=== PATIENT | male | born 1945 | race American Indian/Alaskan Native ===

== ENCOUNTER 2018-01-20 13:29 | Inpatient (IN) | payer OTHER ==
[2018-01-20] VITALS (8 sets, daily range): BP systolic 92–146; BP diastolic 60–97
[~2018-01-20] VITALS: Ht 172.7 cm; Wt 92.0 kg
[~2018-01-20 13:29] MED LIST: ADULT LOW DOSE81 MG PO; ALLOPURINOL300 M1 PO; APAP/HYDROCODON1 T11 PO; ATORVASTATIN CA40 M1 PO; CARVEDILOL25 M1 PO; CLOPIDOGREL75 M1 PO; D25 PO; FENOFIBRATE160 M1 PO; HUMULIN N100 U/1 ML SQ; METFORMIN HCL1000 MG PO; NEU300 PO; SPIRONOLACTONE25 MG PO
[2018-01-20 14:49] LABS: BASOPHIL % 0.6 % (0-2); PLATELET COUNT 190 x10^3mcL (130-400); RED CELL DISTRIBUTION WIDTH 14.3 % (11.5-14.5)
[2018-01-20 14:52] LABS: CALCIUM 8.9 mg/dL (8.5-10.1); CARBON DIOXIDE 17.6 mmol/L (21-32); CHLORIDE SERUM 106 mmol/L (98-107); CREATININE SERUM 2.1 mg/dL (0.7-1.3); GLUCOSE SERUM 209 mg/dL (74-106); POTASSIUM SERUM 4.9 mmol/L (3.5-5.1); SODIUM SERUM 139 mmol/L (136-145)
[2018-01-20 14:56] LABS: ALBUMIN 3.7 g/dL (3.4-5.0); ALKALINE PHOSPHATASE 29 U/L (46-116); ALT/SGPT 41 U/L (16-63); AST/SGOT 51 U/L (15-37); BILIRUBIN TOTAL 0.4 mg/dL (0.20-1.00); MAGNESIUM 1.5 mg/dL (1.8-2.4); PHOSPHOROUS 4.9 mg/dL (2.5-4.9); TOTAL PROTEIN, SERUM 7.5 g/dL (6.4-8.2)
[2018-01-20 15:04] LABS: microscopic required? YES; urine erythrocyte NEGATIVE (NEGATIVE)
[2018-01-20 16:52] LABS: CHOLESTEROL/HDL RATIO 3.1
[2018-01-20 16:53] LABS: FREE T4 1.07 ng/dL (0.76-1.46); FREE THYROXINE INDEX 2.2 ug/dL (1.4-4.5); T4(THYROXINE) 6.6 ug/dL (4.7-13.3)
[2018-01-20] MEDS ORDERED: CLOPIDOGREL75 M1 PO (17:03)
[2018-01-20] MEDS ORDERED: FENOFIBRATE160 M1 PO (17:04)
[2018-01-20] MEDS ORDERED: ATORVASTATIN CA40 M1 PO ×2 (17:05)
[2018-01-20] MEDS ORDERED: CARVEDILOL25 M1 PO (17:06)
[2018-01-20] MEDS ORDERED: ALDACTONE25 MG PO (17:06)
[2018-01-20] MEDS ORDERED: GOOD SENSE ASPI81 M3 PO (17:07)
[2018-01-20] MEDS ORDERED: METFORMIN HCL1000 MG PO (17:08)
[2018-01-20] MEDS ORDERED: NEU300 PO (17:08)
[2018-01-20] MEDS ORDERED: HUMULIN N100 U/1 ML SC (17:09)
[2018-01-20] MEDS ORDERED: ALLOPURINOL100 MG PO (17:10)
[2018-01-20] MEDS ORDERED: DIGOXIN0.25 M1 PO (17:11)
[2018-01-20 17:15] LABS: T3 TOTAL 0.86 ng/mL
[2018-01-21] VITALS (19 sets, daily range): BP systolic 92–160; BP diastolic 45–94
[2018-01-21 04:55] LABS: BASOPHIL % 0.2 % (0-2); PLATELET COUNT 190 x10^3mcL (130-400); RED CELL DISTRIBUTION WIDTH 13.6 % (11.5-14.5)
[2018-01-21 05:05] LABS: CALCIUM 8.5 mg/dL (8.5-10.1); CARBON DIOXIDE 24.2 mmol/L (21-32); CHLORIDE SERUM 108 mmol/L (98-107); CREATININE SERUM 1.6 mg/dL (0.7-1.3); GLUCOSE SERUM 169 mg/dL (74-106); MAGNESIUM 1.8 mg/dL (1.8-2.4); PHOSPHOROUS 3.7 mg/dL (2.5-4.9); SODIUM SERUM 139 mmol/L (136-145)
[2018-01-21 05:12] LABS: POTASSIUM SERUM 5.9 mmol/L (3.5-5.1)
[2018-01-21 05:22] LABS: AMPHETAMINE QUAL UR NONE DETECTED (NEG <=1000)
[2018-01-21 12:08] LABS: ALBUMIN 3.4 g/dL (3.4-5.0); ALKALINE PHOSPHATASE 30 U/L (46-116); ALT/SGPT 37 U/L (16-63); AST/SGOT 44 U/L (15-37); BILIRUBIN TOTAL 0.8 mg/dL (0.20-1.00); CALCIUM 8.4 mg/dL (8.5-10.1); CHLORIDE SERUM 108 mmol/L (98-107); CREATININE SERUM 1.5 mg/dL (0.7-1.3); GLUCOSE SERUM 211 mg/dL (74-106); MAGNESIUM 1.4 mg/dL (1.8-2.4); PHOSPHOROUS 3.8 mg/dL (2.5-4.9); POTASSIUM SERUM 4.8 mmol/L (3.5-5.1); SODIUM SERUM 138 mmol/L (136-145); TOTAL PROTEIN, SERUM 7.3 g/dL (6.4-8.2)
[2018-01-21 17:32] LABS: ALKALINE PHOSPHATASE 28 U/L (46-116); ALT/SGPT 21 U/L (16-63); AST/SGOT 43 U/L (15-37); BILIRUBIN TOTAL 1.33 mg/dL (0.20-1.00); CALCIUM 8.1 mg/dL (8.5-10.1); CHLORIDE SERUM 106 mmol/L (98-107); CREATININE SERUM 1.4 mg/dL (0.7-1.3); GLUCOSE SERUM 186 mg/dL (74-106); MAGNESIUM 1.5 mg/dL (1.8-2.4); PHOSPHOROUS 4.5 mg/dL (2.5-4.9); POTASSIUM SERUM 4.1 mmol/L (3.5-5.1); SODIUM SERUM 141 mmol/L (136-145); TOTAL PROTEIN, SERUM 7.1 g/dL (6.4-8.2)
[2018-01-21 17:34] LABS: ALBUMIN 3.2 g/dL (3.4-5.0)
[2018-01-21 17:36] LABS: CARBON DIOXIDE 20.7 mmol/L (21-32)
[2018-01-22] VITALS (17 sets, daily range): BP systolic 85–137; BP diastolic 43–77
[2018-01-22 00:04] LABS: ALKALINE PHOSPHATASE 26 U/L (46-116); ALT/SGPT 32 U/L (16-63); AST/SGOT 35 U/L (15-37); BILIRUBIN TOTAL 0.8 mg/dL (0.20-1.00); CALCIUM 8.1 mg/dL (8.5-10.1); CHLORIDE SERUM 107 mmol/L (98-107); CREATININE SERUM 1.3 mg/dL (0.7-1.3); GLUCOSE SERUM 187 mg/dL (74-106); SODIUM SERUM 136 mmol/L (136-145); TOTAL PROTEIN, SERUM 6.5 g/dL (6.4-8.2)
[2018-01-22 00:15] LABS: MAGNESIUM 2.1 mg/dL (1.8-2.4); PHOSPHOROUS 4.3 mg/dL (2.5-4.9)
[2018-01-22 05:11] LABS: BASOPHIL % 0 % (0-2); PLATELET COUNT 155 x10^3mcL (130-400); RED CELL DISTRIBUTION WIDTH 14.2 % (11.5-14.5)
[2018-01-22 05:28] LABS: ALKALINE PHOSPHATASE 26 U/L (46-116); ALT/SGPT 24 U/L (16-63); AST/SGOT 34 U/L (15-37); BILIRUBIN TOTAL 0.8 mg/dL (0.20-1.00); CALCIUM 8.4 mg/dL (8.5-10.1); CARBON DIOXIDE 18.4 mmol/L (21-32); CHLORIDE SERUM 106 mmol/L (98-107); CREATININE SERUM 1.4 mg/dL (0.7-1.3); GLUCOSE SERUM 176 mg/dL (74-106); POTASSIUM SERUM 3.9 mmol/L (3.5-5.1); SODIUM SERUM 136 mmol/L (136-145); TOTAL PROTEIN, SERUM 6.7 g/dL (6.4-8.2)
[2018-01-22 05:35] LABS: MAGNESIUM 1.9 mg/dL (1.8-2.4); PHOSPHOROUS 4.8 mg/dL (2.5-4.9)
[2018-01-22 11:59] LABS: ALKALINE PHOSPHATASE 28 U/L (46-116); ALT/SGPT 31 U/L (16-63); AST/SGOT 37 U/L (15-37); BILIRUBIN TOTAL 1.27 mg/dL (0.20-1.00); CALCIUM 8.4 mg/dL (8.5-10.1); CARBON DIOXIDE 22.8 mmol/L (21-32); CHLORIDE SERUM 106 mmol/L (98-107); CREATININE SERUM 1.7 mg/dL (0.7-1.3); GLUCOSE SERUM 191 mg/dL (74-106); MAGNESIUM 1.8 mg/dL (1.8-2.4); POTASSIUM SERUM 4.3 mmol/L (3.5-5.1); SODIUM SERUM 139 mmol/L (136-145); TOTAL PROTEIN, SERUM 6.9 g/dL (6.4-8.2)
[2018-01-22 12:04] LABS: ALBUMIN 3.1 g/dL (3.4-5.0)
[2018-01-23] VITALS (18 sets, daily range): BP systolic 104–122; BP diastolic 58–74
[2018-01-23 03:28] LABS: CALCIUM 8.4 mg/dL (8.5-10.1); CARBON DIOXIDE 24.4 mmol/L (21-32); CHLORIDE SERUM 107 mmol/L (98-107); CREATININE SERUM 1.7 mg/dL (0.7-1.3); GLUCOSE SERUM 171 mg/dL (74-106); MAGNESIUM 1.8 mg/dL (1.8-2.4); SODIUM SERUM 140 mmol/L (136-145)
[2018-01-23 03:35] LABS: BASOPHIL % 0.1 % (0-2); PLATELET COUNT 153 x10^3mcL (130-400); RED CELL DISTRIBUTION WIDTH 14.1 % (11.5-14.5)
[2018-01-24] VITALS (11 sets, daily range): BP systolic 101–117; BP diastolic 58–74; Ht 172.7 cm; Wt 92.0 kg
[2018-01-24 04:34] LABS: BASOPHIL % 0.4 % (0-2); PLATELET COUNT 144 x10^3mcL (130-400); RED CELL DISTRIBUTION WIDTH 14.1 % (11.5-14.5)
[2018-01-24 05:16] LABS: ALKALINE PHOSPHATASE 32 U/L (46-116); ALT/SGPT 25 U/L (16-63); AST/SGOT 46 U/L (15-37); BILIRUBIN TOTAL 0.94 mg/dL (0.20-1.00); CALCIUM 8.6 mg/dL (8.5-10.1); CHLORIDE SERUM 106 mmol/L (98-107); CREATININE SERUM 1.8 mg/dL (0.7-1.3); GLUCOSE SERUM 200 mg/dL (74-106); MAGNESIUM 1.8 mg/dL (1.8-2.4); PHOSPHOROUS 2.7 mg/dL (2.5-4.9); SODIUM SERUM 140 mmol/L (136-145); TOTAL PROTEIN, SERUM 6.8 g/dL (6.4-8.2)
[2018-01-24 05:17] LABS: ALBUMIN 2.8 g/dL (3.4-5.0)
[2018-01-25] MEDS ORDERED: MOR4I IV (01:46)
[2018-01-25] MEDS ORDERED: NITOUD TOP (01:46)
[2018-01-25] MEDS ORDERED: COR200 PO (01:46)
[2018-01-25] MEDS ORDERED: HUMULIN R100 U/1 M1 SC (01:47)
[2018-01-25] MEDS ORDERED: L20 PO (01:47)
[2018-01-25] MEDS ORDERED: ZOS3PM IV (01:48)
[2018-01-25] MEDS ORDERED: HEP100I IV (01:51)
[2018-01-25] MEDS ORDERED: HEP5I IV (01:51)
[2018-01-25] MEDS ORDERED: DEXPF IV (01:52)
[2018-01-25 01:57] VITALS: BP 109/60
== END 2018-01-25 02:30 | disposition short-term general hospital (02) | DRG 208 ==
LOC: ED 13:29 → EDBD 13:29 → IC 15:05
PROVIDERS: Family Medicine; Internal Medicine Cardiovascular Disease; Specialist
PROC: 02HV33Z Insertion of Infusion Device into Superior Vena Cava, Percutaneous Approach (ICD-10-PCS; principal; 2018-01-20)
PROC: 06HY33Z Insertion of Infusion Device into Lower Vein, Percutaneous Approach (ICD-10-PCS; 2018-01-20)
PROC: 5A1945Z Respiratory Ventilation, 24-96 Consecutive Hours (ICD-10-PCS; 2018-01-20)
PROC: 0BH17EZ Insertion of Endotracheal Airway into Trachea, Via Natural or Artificial Opening (ICD-10-PCS; 2018-01-20)
PROC: 4A023N7 Measurement of Cardiac Sampling and Pressure, Left Heart, Percutaneous Approach (ICD-10-PCS; 2018-01-23)
PROC: B2111ZZ Fluoroscopy of Multiple Coronary Arteries using Low Osmolar Contrast (ICD-10-PCS; 2018-01-23)
PROC: B2151ZZ Fluoroscopy of Left Heart using Low Osmolar Contrast (ICD-10-PCS; 2018-01-23)
PROC: B41F1ZZ Fluoroscopy of Right Lower Extremity Arteries using Low Osmolar Contrast (ICD-10-PCS; 2018-01-23)
DX: J96.01 Acute respiratory failure with hypoxia (principal); I21.4 Non-ST elevation (NSTEMI) myocardial infarction; I46.9 Cardiac arrest, cause unspecified; I49.01 Ventricular fibrillation; N17.0 Acute kidney failure with tubular necrosis; J69.0 Pneumonitis due to inhalation of food and vomit; I50.43 Acute on chronic combined systolic (congestive) and diastolic (congestive) heart failure; I42.0 Dilated cardiomyopathy; E44.0 Moderate protein-calorie malnutrition; I13.0 Hypertensive heart and chronic kidney disease with heart failure and stage 1 through stage 4 chronic kidney disease, or unspecified chronic kidney disease; I25.2 Old myocardial infarction; E83.42 Hypomagnesemia; E11.51 Type 2 diabetes mellitus with diabetic peripheral angiopathy without gangrene; E11.22 Type 2 diabetes mellitus with diabetic chronic kidney disease; E87.5 Hyperkalemia; I48.91 Unspecified atrial fibrillation; I25.10 Atherosclerotic heart disease of native coronary artery without angina pectoris; N18.3 Chronic kidney disease, stage 3 (moderate); K80.20 Calculus of gallbladder without cholecystitis without obstruction; Z68.29 Body mass index [BMI] 29.0-29.9, adult; Z90.49 Acquired absence of other specified parts of digestive tract
CPT/HCPCS: CLHCL; 36556; 36600; 82962; 83880; 84439; 87046; 87046-59; A4628; C1769; C1894; C9113; J1170; J1642; J1644; J1815; J1940; J2001; J2060; J2250; J2270; J2543; J2704; J3010; J3475; J3490; J7030; J7040; J7050; Q0092; Q9967

== ENCOUNTER 2019-05-16 23:42 | Emergency (ER) | payer OTHER ==
[~2019-05-16] VITALS: Ht 180.3 cm; Wt 84.8 kg
[~2019-05-16 23:42] MED LIST changes: +ALDACTONE25 MG PO; +ALLOPURINOL100 MG PO; +COR200 PO; +DEXPF IV; +DIGOXIN0.25 M1 PO; +GOOD SENSE ASPI81 M3 PO; +HEP100I IV; +HEP5I IV; +HUMULIN N100 U/1 ML SC; +HUMULIN R100 U/1 M1 SC; +L20 PO; +MOR4I IV; +NITOUD TOP; +ZOS3PM IV
[2019-05-16 23:50] VITALS: Ht 180.3 cm; Wt 84.8 kg
[2019-05-17 00:56] LABS: URIC ACID 11.6 mg/dL (3.5-7.2)
[2019-05-17 01:38] VITALS: BP 117/68
== END 2019-05-17 01:38 | disposition home or self-care (01) ==
LOC: ED 23:42
PROVIDERS: Emergency Medicine
DX: M10.012 Idiopathic gout, left shoulder (principal); E11.9 Type 2 diabetes mellitus without complications; I10 Essential (primary) hypertension; I25.2 Old myocardial infarction; Z98.890 Other specified postprocedural states
CPT/HCPCS: J7512; Q0092

== ENCOUNTER 2019-05-30 14:25 | Inpatient (IN) | payer OTHER ==
[~2019-05-30] VITALS: Ht 175.3 cm; Wt 80.0 kg
[2019-05-30 14:39] VITALS: Ht 175.3 cm; Wt 80.0 kg
--- NOTE | 2019-05-30 14:43 | NUR ---
PT BIB [facility] FOR R FLANK PAIN X 24 HRS. DENIES ANY N/V/D NO OTHER SYMPTOMS REPORTED.
--- NOTE | 2019-05-30 15:11 | NUR ---
MSE COMPLETED BY DR HAWLEY
[2019-05-30 15:24] LABS: PLATELET COUNT 206 x10^3mcL (130-400)
[2019-05-30 15:27] LABS: RED CELL DISTRIBUTION WIDTH 15.4 % (11.5-14.5)
[2019-05-30 15:34] LABS: CALCIUM 9.4 mg/dL (8.5-10.1); CHLORIDE SERUM 95 mmol/L (98-107); CREATININE SERUM 2.9 mg/dL (0.7-1.3); GLUCOSE SERUM 361 mg/dL (74-106); POTASSIUM SERUM 4.3 mmol/L (3.5-5.1); SODIUM SERUM 131 mmol/L (136-145)
[2019-05-30 15:42] LABS: BAND NEUTROPHIL 2 % (0-10); BASOPHIL 0 % (0-2); MONOCYTE 8 % (0-7); SEGMENTED NEUTROPHILS 87 % (37-75)
[2019-05-30 15:43] LABS: PLATELET MORPHOLOGY PLATELETS NORMAL; rbc morphology (normal/abnorm) NORMAL (NORMAL)
[2019-05-30 15:49] LABS: ALKALINE PHOSPHATASE 149 U/L (46-116); ALT/SGPT 15 U/L (16-63); AST/SGOT 19 U/L (15-37); BILIRUBIN TOTAL 1.55 mg/dL (0.20-1.00)
[2019-05-30 15:52] LABS: ALBUMIN 3.1 g/dL (3.4-5.0); TOTAL PROTEIN, SERUM 8.8 g/dL (6.4-8.2)
--- NOTE | 2019-05-30 16:56 | NUR ---
PT TO CT AT THIS TIME
--- NOTE | 2019-05-30 18:36 | NUR ---
US IN PROGRESS
--- NOTE | 2019-05-30 19:08 | NUR ---
EKG COMPLETED BY HAY PENNY
--- NOTE | 2019-05-30 19:46 | NUR ---
PATIENT ASSISTED UP TO USE THE URINAL . URINE COLLECTED AND SENT TO THE LAB
[2019-05-30 19:52] LABS: microscopic required? YES; urine erythrocyte NEGATIVE (NEGATIVE)
--- NOTE | 2019-05-30 20:29 | NUR ---
ADMISSION ROOM OBTAINED. REPORT WAS GIVEB TO ADRIANO.
--- NOTE | 2019-05-30 20:34 | NUR ---
PATIENT IS SLEEPING. NO COMPLAINT. PATIENT TRANSPORTED TO ROOM 255B , SALINE INFUSING @ 250 ML/HR
--- NOTE | 2019-05-30 21:00 | NUR ---
PATIENT ORIENTED TO ROOM AND USE OF CALL LIGHT. ON TELE 2 SHOWS JUNCTIONAL RYTHM WITH PVCS. IV TO LFA INFUSING WITHOUT ERYTHEMA OR INFILTRATION, NS AT 250 ML. WILL START D5NS ONCE COMPLETED. NO SOB ON RA. PATIENT REPORTS 6/10 FLANK PAIN. WILL MEDICATE PER EMAR. BED LOCKED AND IN LWOEST POSIITON. CALL LIGHT AND BEDSDIE TABLE WITHIN REACH.
--- NOTE | 2019-05-30 21:14 | NUR ---
PATIENT GIVEN NORCO FOR 6/10 FLANK PAIN PER EMAR.
[2019-05-30 21:30] VITALS: BP 141/77
--- NOTE | 2019-05-30 21:44 | NUR ---
RECEIVED PT FROM ER. PT ADMIT FOR R/O CHOLECYSTITIS, ACUTE RENAL FAILURE, PT IS A/O X4, VERBAL RESPONSIVE, ABLE TO TELL WHAT HE NEEDS. LUNG SOUND CLEAR BILATERAL,NO COUGH, NO SOB, PT DENY ANY CHEST PAIN OR DISCOMFORT. BOWEL SOUND PRESENT ALL 4 QUADRANTS, NO DISTENTION, NO TENDER. PT C/O RIGHT FLANK PAIN 6/10 AT THIS MOMENT. PEDAL PULSE PRESENT BOTH FEET, TRACE EDEMA BLE NOTED. AND SWELLING AT RIGHT KNEE NOTED. BLE DARK DISCOLORATION, LEFT BIG TOE AND THIRD TOE BIG TISSUE. IV AT LEFT FA, NO LEAKING, NO INFILTRAITON. ALL ADLS ASSIST, ALL NEED MET, CALL LIGHT IN REACH, WILL CONTINUE TO MONITOR.
--- NOTE | 2019-05-31 02:19 | NUR ---
PATIENTS EYS ARE CLOSED, BREATHS EVEN. CALL LIGHT WITHIN REACH.
[2019-05-31 06:02] VITALS: BP 99/62
--- NOTE | 2019-05-31 06:30 | NUR ---
PATIENTS BLOOD SUGAR THIS MORNING IS 324 DUE TO D5NS FLUIDS RUNNING AT 80. PATIENT IS NPO STATUS. DR. HOFF PAGED TO DECIDE WHAT DOSE OF INSULIN PATIENT SHOULD RECIEVE.
--- NOTE | 2019-05-31 06:35 | NUR ---
NO FURTHER SIGNIFICANT EVENTS THIS SHIFT. PATIENT DENIES DISCOMFORT. ON TELE 2, JUNCTIONAL RYTHM 78, PVCS. IV INFUSING WITHOUT ERYTHEMA OR INFILTRATION. NPO STATUS. BED LOCKED AND IN LOWEST POSITION. CALLLIGHT WITHIN REACH. WILL ENDORSE CARE TO MORNING NURSE.
[2019-05-31 07:02] LABS: PLATELET COUNT 181 x10^3mcL (130-400)
[2019-05-31 07:37] LABS: BASOPHIL % 0 % (0-2); RED CELL DISTRIBUTION WIDTH 15.4 % (11.5-14.5)
[2019-05-31 08:13] VITALS: BP 91/53
[2019-05-31 08:39] LABS: ALKALINE PHOSPHATASE 122 U/L (46-116); ALT/SGPT 13 U/L (16-63); AST/SGOT 12 U/L (15-37); BILIRUBIN TOTAL 1.22 mg/dL (0.20-1.00); CALCIUM 9.3 mg/dL (8.5-10.1); CARBON DIOXIDE 23.4 mmol/L (21-32); CHLORIDE SERUM 99 mmol/L (98-107); CREATININE SERUM 2.3 mg/dL (0.7-1.3); GLUCOSE SERUM 315 mg/dL (74-106); POTASSIUM SERUM 4.6 mmol/L (3.5-5.1); SODIUM SERUM 136 mmol/L (136-145); TOTAL PROTEIN, SERUM 7.7 g/dL (6.4-8.2)
--- NOTE | 2019-05-31 08:45 | NUR ---
DR VYAS CAME IN TO SEE HIS PATIENTS. I TOLD HIM THAT THE BLOODM SUGAR AC BREAKFAST WAS 324 AND THE 12 UNITS WAS HELD, DUE TO NPO STATUS. ALSO I TOLD HIM ABOUT THE PATIENTS LEFT FOOT, HIS GREAT TOE/FIRST TOE AND 3RD TOE ARE MISSING THE TOE NAILS AND BROWN DRY SCABS ARE IN THEIR PLACE. THE PATIENT STATES HE WORE SHOES THAT WERE TOO SMALL AND HIS TOE NAILS FELL OFF AND THAT HIS DR WAS AWARE. I ASKED DR VYAS IF HE WANTED PODIATRY TO CONSULT FOR HIS LEFT FOOT/TOES.
[2019-05-31 09:05] LABS: ALBUMIN 2.5 g/dL (3.4-5.0)
--- NOTE | 2019-05-31 09:16 | NUR ---
AAO TIMES 4. TELE # 2 JUNCTIONAL RHYTHM 80'S. NO C/O CARDIAC TYPE DISCOMFORT. NPO. BS'S ACTIVE TIMES 4. RHOADES WITH C/O RIGHT KNEE PAIN, HISTORY OF GOUT PER PATIENT. PERIPHERAL PULSES PALPABLE, PEDAL PULSES WEAK. IV SITE CDI. COOPERAIVE. NO SOB. O2 SAT ON RA 93%.
--- NOTE | 2019-05-31 10:09 | NUR ---
DR VYAS ORDERED A BOLUS OF NS 1,000 ML FOR BP OF 91/53, BUN AND CREAT ELEVATED ALSO. THE BOLUS WAS GIVEN AT 1009, AND FINISHED AT 1150. HIS BP IS NOW 99/58, HR 80.
--- NOTE | 2019-05-31 11:51 | NUR ---
BLOOD SUGAR 246, ANTICIPATED TO BE NPO UNTIL NUCLEAR MEDICINE SCAN FOR GB IS DONE AROUND [phone] PER TECH.
[2019-05-31 11:55] VITALS: BP 99/58
--- NOTE | 2019-05-31 18:42 | NUR ---
CAME BACK FROM NUCLEAR MEDICINE SCAN AT 1803. TELE # 2 JUNCTIONAL RHYTHM 82. NO C/O PAIN. NO SOB. IV SITE CDI. COOPERATIVE. HE TOLERATED CLEAR LIQUID DINNER, HE ATE 50%.
--- NOTE | 2019-05-31 19:15 | NUR ---
RECEIVED PT FROM DAY SHIFT RN. PT IS ALERT AND ORIENTED X4 AND ABLE TO FOLLOW SIMPLE COMMANDS. FAMILY IS CURRENTLY AT THE BEDUSDE. PT DENIES SHORTNESS OF BREATH OR CHEST PAIN ON ROOM AIR. THERE ARE NO USE OF ACCESSORY MUSCLES OR LABORED BREATHING ON ASSESSMENT. PT IS AMBULATORY WITH ASSIST. RIGHT KNEE SWELLING NOTED SECONDARY TO GOUT PER PATIENT. EDUCATED PT ON ELEVATING LEG AND CALLING FOR ASSISTANCE WHEN ATTEMPTING TO AMBULATE. PT DENIES ABD PAIN AT THIS TIME. BOWEL SOUNDS ACTIVE. THERE IS A L BIG TOE SCAB NOTED MIXER AND SCALER. PT DENIES PAIN. TELE #[address] SAFETY MEASURES IN PLACE. CALL LIGHT WITHIN REACH. BED IN LOWES POSITION. WILL CONTINUE TO MONITOR PT.
--- NOTE | 2019-05-31 19:45 | NUR ---
SPOKE WITH [facility] IN ORDER TO GET A HOLD OF RURAL SERVICE ENGINEER DOCTOR TO CHANGE FLUIDS. PT NO LONGER NPO. SPOKE WITH CAR DUMPER OPERATOR HELPER AWAITING CALL BACK FROM DOCTOR ASAEL.
[2019-05-31 20:17] VITALS: BP 113/55
--- NOTE | 2019-05-31 20:17 | NUR ---
ADMINISTERED NORCO FOR BACK PAIN 06/21. WILL MONITOR.
--- NOTE | 2019-06-01 00:44 | NUR ---
PT RESTING IN BED ON PHONE AT THIS TIME. NO DISTRESS NOTED. PT DENIES CHEST PAIN OR SHORTNESS OF BREATH. WILL CONTINUE TO MONITOR.
[2019-06-01 05:51] VITALS: BP 97/56
[2019-06-01 06:56] VITALS: BP 98/56
[2019-06-01 07:04] LABS: BASOPHIL % 0.1 % (0-2); PLATELET COUNT 186 x10^3mcL (130-400)
[2019-06-01 07:16] LABS: ALKALINE PHOSPHATASE 117 U/L (46-116); ALT/SGPT 11 U/L (16-63); AST/SGOT 14 U/L (15-37); CALCIUM 9.5 mg/dL (8.5-10.1); CARBON DIOXIDE 23.5 mmol/L (21-32); CHLORIDE SERUM 102 mmol/L (98-107); CREATININE SERUM 2.2 mg/dL (0.7-1.3); GLUCOSE SERUM 146 mg/dL (74-106); POTASSIUM SERUM 4.3 mmol/L (3.5-5.1); SODIUM SERUM 138 mmol/L (136-145); TOTAL PROTEIN, SERUM 7.9 g/dL (6.4-8.2)
[2019-06-01 07:22] LABS: RED CELL DISTRIBUTION WIDTH 15.4 % (11.5-14.5)
[2019-06-01 07:29] LABS: ALBUMIN 2.4 g/dL (3.4-5.0)
--- NOTE | 2019-06-01 08:14 | NUR ---
AAO TIMES 4. TELE # 2 JUNCTIONAL. LUNGS CTA. NO SOB. O2 SAT ON RA 98%. BS'S ACTIVE TIMES 4. RHOADES WITH GENERALIZED WEAKNESS. IV SITE CDI. COOPERATIVE. NO C/O PAIN. PERIPHERAL PULSES PALPABLE. TRACE EDEMA BLE. ON CLEAR LIQUIDS.
[2019-06-01 09:32] VITALS: BP 102/56
[2019-06-01 13:47] VITALS: BP 101/55
--- NOTE | 2019-06-01 15:07 | NUR ---
CALLED TO AND MADE AWARE THAT THE PATIENT WENT TO AFIB AND HE'S AWARE THAT THE PATIENT HAD HX OF CABG AND HE ORDERED ASPIRIN AND HE HAS TO FOLLOW UP WITH HIS DENTURE LABORATORY TECHNICIAN.
[2019-06-01] MEDS ORDERED: Z5 PO (16:32)
[2019-06-01] MEDS ORDERED: ELIQUIS2.5 MG PO (16:33)
[2019-06-01] MEDS ORDERED: METOPROLOL TART25 M1 PO (16:35)
[2019-06-01] MEDS ORDERED: NATURAL IRON65 MG PO (16:38)
[2019-06-01] MEDS ORDERED: AMIODARONE200 MG PO (16:39)
[2019-06-01] MEDS ORDERED: FAMOTIDINE20 M1 PO (16:40)
[2019-06-01] MEDS ORDERED: ATORVASTATIN CA10 M1 PO (16:41)
--- NOTE | 2019-06-01 17:54 | NUR ---
AAO TIMES 4. TELE # 2 ATRIAL FIB 70'S. (DR VYAS AWARE) NO C/O PAIN. HIS SON HAS BEEN VISITING WITH HIM IN HIS ROOM FOR A COUPLE OF HOURS, SUPPORTIVE AND CARING. IV SITE CDI.
[2019-06-01 18:07] VITALS: BP 100/49
--- NOTE | 2019-06-01 19:37 | NUR ---
SHIFT REASSESSMENT DONE.PATIENT ALERT AND ORIENTED.NOT IN RESP DISTRESS.GEN WEAKNESS.FALL PRECAUTION,HEPLOCK INTACT,ATB SCHEDULED.TELE 2 JUNCTIONAL,NO CHEST PAIN.BLE DARK DISCOLORATION,L BIG TOE,THIRD TOE DARK SCAB.VOIDING PER URINAL,I AND O.CALL LIGHT IN REACH.
[2019-06-01 20:50] VITALS: BP 100/52
--- NOTE | 2019-06-01 22:22 | NUR ---
PATIENT PM MEDS GIVEN,ATB WITH NO INCIDENT,BLOOD SUGAR TONIGHT 336,GIVEN 12 UNITS RI,HS SNACK CRACKERS GIVEN,SWALLOWS WELL.
--- NOTE | 2019-06-01 22:24 | NUR ---
USING URINAL AT BEDSIDE.VOIDING WELL.I AND O.
--- NOTE | 2019-06-02 01:00 | NUR ---
SLEEPING WELL,NOT DISTURBE ON NURING ROUNDS,BREATHING EASY.URINAL AT BEDSIDE,VOIDING WITH NO INCIDENT,CALL LIGHT IN REACH.
--- NOTE | 2019-06-02 05:24 | NUR ---
ATB GIVEN WITH NO INCIDENT,IV SITE WITH DRY BLOOD IN OPSITE DRESSING BUT INFUSING WELL.
[2019-06-02 05:44] VITALS: BP 110/55
--- NOTE | 2019-06-02 06:27 | NUR ---
BLOOD SUGAR THIS AM 300,RISS 9 UNITS.WILL ENDORSE TO NEXT SHIFT.
--- NOTE | 2019-06-02 07:20 | NUR ---
RECEIVED PT FROM HEATING OPERATORS ENGINEER RN. Brandt/KELLEE. TELE#2. DENIES CHEST PAIN/PRESSURE. RESPIRATIONS EQUAL AND UNLABORED ON RA. DENIES SOB. PT DENIES ANY ABDOMINAL PAIN. DENIES ANY N/V. EMPTIED 460 ML OF AMELIE YELLOW URINE FROM URINAL. PT DENIES ANY DYSURIA. PT C/O RIGHT BACK PAIN 6/10 THROBBING. PT STATES NOTHING HAS HELPED TO IMPROVE PAIN. IV TO LFA SALINE LOCKED. NO REDNESS OR SWELLING NOTED. WILL CONTINUE TO MONITOR. CALL LIGHT IN REACH. BED IN LOWEST POSITION.
[2019-06-02 07:23] LABS: PLATELET COUNT 219 x10^3mcL (130-400)
[2019-06-02 07:30] LABS: BASOPHIL % 0 % (0-2)
[2019-06-02 08:01] LABS: ALKALINE PHOSPHATASE 124 U/L (46-116); ALT/SGPT 11 U/L (16-63); AST/SGOT 12 U/L (15-37); BILIRUBIN TOTAL 0.99 mg/dL (0.20-1.00); CALCIUM 9.4 mg/dL (8.5-10.1); CARBON DIOXIDE 25.3 mmol/L (21-32); CHLORIDE SERUM 99 mmol/L (98-107); CREATININE SERUM 2.3 mg/dL (0.7-1.3); GLUCOSE SERUM 337 mg/dL (74-106); POTASSIUM SERUM 4.4 mmol/L (3.5-5.1); SODIUM SERUM 136 mmol/L (136-145)
[2019-06-02 08:02] LABS: ALBUMIN 2.4 g/dL (3.4-5.0)
[2019-06-02 08:06] LABS: microalbumin:creatinine ratio 26.2 (0.0-30.0)
[2019-06-02 09:06] VITALS: BP 112/48
--- NOTE | 2019-06-02 09:11 | NUR ---
PT SITTING UP IN BED. NO ACUTE RESP DISTRESS NOTED ON RA. PT STILL HAVING RIGHT BACK PAIN 04/21. PT DOES NOT WANT ANY PAIN MEDICATION. GIVEN PO MEDS. TOLERATED WELL. IV TO LFA PATENT AND INFUSING. NO REDNESS OR SWELLING NOTED. WILL CONTINUE TO MONITOR. CALL LIGHT IN REACH. BED IN LOWEST POSITION.
--- NOTE | 2019-06-02 11:42 | NUR ---
PT SITTING UP IN BED. NO ACUTE RESP DISTRESS NOTED ON RA. BLOOD SUGAR CHECKED WAS 355. GIVEN 3 UNITS OF REGULAR INSULIN PER SLIDING SCALE TO ABDOMEN. PT STATES PAIN TO BACK IS IMPROVING. WILL CONTINUE TO MONITOR. CALL LIGHT IN REACH. BED IN LOWEST POSITION.
[2019-06-02 12:32] VITALS: BP 106/55
--- NOTE | 2019-06-02 12:50 | NUR ---
PAGED DR. VYAS REGARDING PT HOME MEDICATION ELIQUIS.
--- NOTE | 2019-06-02 12:53 | NUR ---
SPOKE WITH DR. VYAS PER DR. ASAEL WHITING TO CONTINUE ELIQUIS 2.5 MG PO BID. CONFIRMED ORDER TORB.
--- NOTE | 2019-06-02 16:11 | NUR ---
PT SITTING UP IN BED. NO ACUTE RESP DISTRESS NOTED ON RA. PT DENIES ANY PAIN AT THIS TIME. BLOOD SUGAR CHECKED WAS 276. GIVEN 9 UNITS OF REGULAR INSULIN PER SLIDING SCALE IN LEFT ARM. IV PATENT AND INFUSING. NO REDNESS OR SWELLING NOTED. EMPTIED 550 ML AMELIE YELLOW URINE. WILL CONTINUE TO MONITOR. CALL LIGHT IN REACH. BED IN LOWEST POSITION.
[2019-06-02 17:29] VITALS: BP 104/54
--- NOTE | 2019-06-02 17:47 | NUR ---
PT SITTING UP AT BEDSIDE. NO ACUTE RESP DISTRESS NOTED ON RA. PT C/O PAIN 5/10 TO RIGHT BACK. MEDICATED PER EMAR. IV PATENT AND INFUSING. NO REDNESS OR SWELLING NOTED. WILL CONTINUE TO MONITOR. CALL LIGHT IN REACH. BED IN LOWEST POSITION.
--- NOTE | 2019-06-02 18:29 | NUR ---
PT SITTING UP IN BED. NO ACUTE RESP DISTRESS NOTED ON RA. PT STATES PAIN HAS IMPROVED SINCE RECEIVING ADVIL. IV PATENT AND INFUSING TO LFA. NO REDNESS OR SWELLING NOTED. PT DENIES ANY ABDOMINAL PAIN OR N/V AT THIS TIME. WILL ENDORSE TO INTERNATIONAL TRADE MANAGER RN. CALL LIGHT IN REACH. BED IN LOWEST POSITION.
--- NOTE | 2019-06-02 19:35 | NUR ---
RECEIVED REPORT FROM AM NURSE. PT AAOX4, ABLE TO MAKE NEEDS KNOWN. ON TELE#2 A-FIB. DENIES CP/PRESSURE AT THIS TIME. PALPABLE PULSES TO BLE. EDEMA TO BLE AND RIGHT KNEE. LUNG SOUNDS CTA ON RA. BREATHING EVEN AND UNLABORED. ABD SOFT AND NONTENDER. ACTIVE BOWEL SOUNDS X4 QUAD. DENIES N/V. VOIDS FREELY ON URINAL. GENERALIZED WEAKNESS. C/O RIGHT KNEE PAIN WHEN WALKING. BLE DARK DISCOLORATION. DRY SCABS TO LEFT GREAT TOE AND LEFT THIRD TOE BRIANNA. IV SL TO LFA FLUSHING WELL. SITE FREE FROM REDNESSS AND SWELLING. BED AT LOWEST SETTING. SIDE RAILS X2 UP. CALL LIGHT WITHIG REACH. WILL CONTINUET TO MONITOR.
[2019-06-02 20:47] VITALS: BP 113/44
--- NOTE | 2019-06-03 00:17 | NUR ---
PT AWAKE LAYING DOWN IN BED. BREATHING EVEN AND UNLABORED ON RA. NO ACUTE DISTRESS NOTE. PT C/O 03/21 PAIN ON RIGHT KNEE. MEDICATED WITH PRN ADVIL PER JAN. BED AT LOWEST SETTING. SIDE RAILS X2 UP. CALL LIGHT WITHING REACH. WILL CONTINUE TO MONITOR.
[2019-06-03 05:42] VITALS: BP 104/48
--- NOTE | 2019-06-03 05:45 | NUR ---
PT SLEPT WELL THROUGHOUT THE NIGHT. BREATHING EVEN AND UNLABORED ON RA. NO ACUTE DISTRESS NOTED. ALL NEEDS ASSESSED AND ATTENDED TO. IV SL TO LFA FLUSHING WELL. SITE FREE FROM REDNESS AND SWELLING. BED AT LOWEST SETTING. SIDE RAILS X2 UP. CALL LIGHT WITHING REACH. WILL ENDORSE CARE TO AM NURSE.
--- NOTE | 2019-06-03 07:30 | NUR ---
PT ENDORSE TO ME THIS MORNING. LAYING IN BED RESTING. AA/O X4, BREATHING EVEN AND UNLABORED ON RA, NO ACUTE REPS DISTRESS OR SOB NOTED. TELE 2 AFIB NOTED, DENIES ANY CP OR PRESSURE. HR 69. EDEMA NOTED BLE TO RIGHT KNEE. LAST BM 06/02, BOWEL SOUNDS ACTIVE IN ALL FOUR QUADS. VOIDS /URINAL AT BEDSIDE. AMB WITH GEN WEAKNESS/ KNOWS TO CALL FOR ASSIST. IV TO THE LFA INTACT AND PATENT/ HEPLOCKED. CALL LIGHT IN REACH. BED IN LOW POSITION. WILL CONTINUE TO MONITOR.
[2019-06-03 07:49] LABS: ALKALINE PHOSPHATASE 95 U/L (46-116); ALT/SGPT 12 U/L (16-63); AST/SGOT 13 U/L (15-37); BILIRUBIN TOTAL 0.63 mg/dL (0.20-1.00); CALCIUM 9.2 mg/dL (8.5-10.1); CARBON DIOXIDE 24.1 mmol/L (21-32); CHLORIDE SERUM 100 mmol/L (98-107); CREATININE SERUM 2.2 mg/dL (0.7-1.3); GLUCOSE SERUM 209 mg/dL (74-106); MAGNESIUM 1.7 mg/dL (1.8-2.4); PHOSPHOROUS 2.8 mg/dL (2.5-4.9); POTASSIUM SERUM 4.3 mmol/L (3.5-5.1); SODIUM SERUM 134 mmol/L (136-145)
[2019-06-03 07:53] LABS: BASOPHIL % 0.4 % (0-2); PLATELET COUNT 205 x10^3mcL (130-400)
[2019-06-03 07:59] LABS: RED CELL DISTRIBUTION WIDTH 14.9 % (11.5-14.5)
[2019-06-03 08:03] LABS: ALBUMIN 2.1 g/dL (3.4-5.0)
[2019-06-03 08:47] VITALS: BP 98/43
--- NOTE | 2019-06-03 09:39 | NUR ---
PT C/O RIGHT KNEE PAIN 05/21, MEDICATED PER EMAR. WILL CONTINUE TO MONITOR.
[2019-06-03 12:33] VITALS: BP 93/50
--- NOTE | 2019-06-03 15:10 | NUR ---
PT LAYING IN BED ON THE PHONE, TOLERATED 100% OF HIS LUNCH. DENIES ANY CP OR RIGHT KNEE PAIN AT THIS TIME, STATED NORCO HELPED WITH PAIN. WILL CONTINUE TO MONITOR.
[2019-06-03 16:24] VITALS: BP 101/45
--- NOTE | 2019-06-03 18:49 | NUR ---
NO ACUTE CHANGES AT THIS TIME. NO ACUTE RESP DISTRESS OR SOB NOTED. WILL ENDORSE TO INCOMING RN.
--- NOTE | 2019-06-03 20:49 | NUR ---
PT CURRENTLY RESTING IN BED, NO ACUTE DISTRESS. A/O X4. TELE #2 SHOWING AFIB, DENIES CHEST PAIN. PULSES PALPABLE IN ALL EXTREMITIES, BLE TRACE EDEMA NOTED. LUNG SOUNDS CTA BILATERALLY, DENIES SOB. BOWEL SOUNDS ACTIVE, LAST BM 06/03/19. VOIDING WELL. GENERALIZED WEAKNESS, AMBULATORY WITH ASSIST. BLE DARK DISCOLORATION NOTED. LEFT FOOT 1ST AND 3RD TOE DARK SCABS, MILITARY ADMINISTRATIVE TECHNICIAN. IV PATENT AND INTACT. BED IN LOWEST POSITION, SIDE RAILS UP X2, CALL LIGHT WITHIN REACH. WILL CONTINUE TO MONITOR.
[2019-06-03 21:11] VITALS: BP 104/53
--- NOTE | 2019-06-04 02:29 | NUR ---
PT CURRENTLY RESTING IN BED, NO ACUTE DISTRESS. WILL CONTINUE TO MONITOR.
[2019-06-04 05:56] VITALS: BP 120/63
--- NOTE | 2019-06-04 06:09 | NUR ---
PT SLEPT PERIODICALLY THROUGHOUT NIGHT, NO ACUTE DISTRESS. ALL NEEDS MET AND ATTENDED TO. NO SIGNIFICANT CHANGES. IV PATENT AND INTACT. MEDICATED PAIN PER EMAR. BED IN LOWEST POSITION, SIDE RAILS UP X2, CALL LIGHT WITHIN REACH. WILL ENDORSE CARE TO ONCOMING NURSE.
[2019-06-04 06:45] LABS: PLATELET COUNT 215 x10^3mcL (130-400)
[2019-06-04 07:00] LABS: BASOPHIL % 0 % (0-2); RED CELL DISTRIBUTION WIDTH 15.4 % (11.5-14.5)
[2019-06-04 07:17] LABS: ALKALINE PHOSPHATASE 93 U/L (46-116); ALT/SGPT 15 U/L (16-63); AST/SGOT 15 U/L (15-37); BILIRUBIN TOTAL 0.7 mg/dL (0.20-1.00); CALCIUM 9.2 mg/dL (8.5-10.1); CARBON DIOXIDE 27.2 mmol/L (21-32); CHLORIDE SERUM 98 mmol/L (98-107); CREATININE SERUM 2.2 mg/dL (0.7-1.3); GLUCOSE SERUM 313 mg/dL (74-106); MAGNESIUM 1.7 mg/dL (1.8-2.4); POTASSIUM SERUM 4.5 mmol/L (3.5-5.1); SODIUM SERUM 135 mmol/L (136-145); TOTAL PROTEIN, SERUM 7.4 g/dL (6.4-8.2)
[2019-06-04 07:18] LABS: ALBUMIN 2.4 g/dL (3.4-5.0)
--- NOTE | 2019-06-04 07:50 | NUR ---
PATIENT A/OX4, ABLE TO MAKE NEEDS KNOWN AND FOLLOW COMANDS, DENIES HEADAHCE OR CHEST PAIN. TELE 2 READING AFIB, DENIES CP, HR 62. TRACE EDEMA TO BLE'S, PERIPHERAL PULSES PALPABLE. LUNGS CTA, NO RESP DISTRESS NOTED ON RA. BREATHING E/U. LAST BM REPORTED YESTERDAY, DENIES N/V, DENIES ABD PAIN AT THIS TIME. REPORTS PAIN TO RT KNEE TOLERABLE. BLE DISCOLORATION NOTED, LT FOOT 1ST AND 3RD DIGITS WITH DARK SCABS BRIANNA. IV SITE TO LFA WNL. CALL LIGHT WITHIN REACH.
[2019-06-04 13:00] VITALS: BP 116/55
--- NOTE | 2019-06-04 17:45 | NUR ---
GLAZE WIPER REPORTS TELE READING HR 130'S BRIEFLY. CHECKED ON PATIENT AND PATIENT SLEEPING. WOKE HIM UP AND HE SAID "I HAD A BAD DREAM". NOW CALM, DENIES CP OR HEADAHCE. WILL CONT TO MONITOR.
[2019-06-04 18:03] VITALS: BP 114/54
--- NOTE | 2019-06-04 18:20 | NUR ---
PATIENT WITH NO ACUTE DISTRESS THROUGHOUT SHIFT AND NO SIGNFICANT CHANGE IN CONDITION. WILL CONT TO MONITOR AND ENDORSE TO NOC NURSE.
--- NOTE | 2019-06-04 20:00 | NUR ---
PT A/A/O X4. DENIES DIZZINESS AND HEADACHE. BREATH SOUNDS CLEAR. BREATHING EVEN AND UNLABORED ON ROOM AIR. DENIES CHEST PAIN AND PRESSURE. HYPERACTIVE BOWEL SOUNDS NOTED. NO C/O N/V AND ABDOMINAL PAIN. DENIES FLANK PAIN THUS FAR. LEFT FOOT WITH 1ST AND 3RD TOES WITH DARK SCAB NOTED PLAYERS ASSISTANT. IV SALINE LOCK NOTED ON THE LEFT FOREARM. MADE PT COMFORTABLE. PLACED CALL LIGHT WITH IN REACH. WILL CONTINUE TO MONITOR.
[2019-06-04 20:11] VITALS: BP 116/52
--- NOTE | 2019-06-04 21:37 | NUR ---
PT WITH TOWN ADMINISTRATOR AT BEDSIDE. DRESSING ON THE ABDOMEN TAKEN OFF [facility] ON THE LOWER ABDOMEN FOR TOWN ADMINISTRATOR TO BE ABLE TO SCAN THE PT. WILL REINFORCE DRESSING WHEN ULTRASOUND IS DONE.
--- NOTE | 2019-06-05 00:18 | NUR ---
PT RESTING WITH EYES CLOSED. NO DISTRESS AND DISCOMFORT NOTED. WILL CONTINUE TO MONITOR.
[2019-06-05 05:45] VITALS: BP 128/68
--- NOTE | 2019-06-05 06:18 | NUR ---
PT QUIET AND RESTING. DENIES FLANK PAIN THUS FAR. IV INTACT AND INFUSING ORDERED. MADE PT COMFORTABLE. WILL ENDORSE TO THE AM NURSE ACCORDINGLY.
--- NOTE | 2019-06-05 07:26 | NUR ---
PATIENT SITTING UP IN BED, A/OX4 ABLE TO MAKE NEEDS KNOWN AND FOLLOW COMMANDS. DENIES HEADACHE OR CHEST PAIN. TELE 2 READING AFIB. LUNGS CTA, NO RESP DISTRESS NOTED ON RA. BREATHING E/U. PERIPHERAL PULSES PALP;ABLE, TRACE EDEMA TO BLE'S, DISCOLORATION NOTED. LT FOOT 1ST AND 3RD DIGITS WITH DARK SCABS, BRIANNA. NO DRAINAGE. REPORTS MILD DISCOMFORT TO RT KNEE BUT TOLERABLE "ITS OKAY". IV ACCESS TO LFA SITE WNL, NO REDNESS /SWELLING. CALL LIGHT WITHIN REACH.
[2019-06-05 07:29] LABS: BASOPHIL % 0.4 % (0-2); PLATELET COUNT 223 x10^3mcL (130-400)
[2019-06-05 07:36] LABS: RED CELL DISTRIBUTION WIDTH 15.1 % (11.5-14.5)
[2019-06-05 09:21] VITALS: BP 125/56
[2019-06-05 09:39] LABS: ALT/SGPT 10 U/L (16-63); AST/SGOT 12 U/L (15-37); CALCIUM 9.8 mg/dL (8.5-10.1); CHLORIDE SERUM 102 mmol/L (98-107); CREATININE SERUM 2.1 mg/dL (0.7-1.3); GLUCOSE SERUM 286 mg/dL (74-106); MAGNESIUM 2.1 mg/dL (1.8-2.4); POTASSIUM SERUM 4.2 mmol/L (3.5-5.1); SODIUM SERUM 136 mmol/L (136-145)
[2019-06-05 10:21] LABS: ALKALINE PHOSPHATASE 89 U/L (46-116); BILIRUBIN TOTAL 0.47 mg/dL (0.20-1.00); CARBON DIOXIDE 24.8 mmol/L (21-32); TOTAL PROTEIN, SERUM 7.4 g/dL (6.4-8.2)
[2019-06-05 10:26] LABS: ALBUMIN 2.4 g/dL (3.4-5.0)
[2019-06-05 11:31] LABS: CALCIUM 9.8 mg/dL (8.5-10.1); CARBON DIOXIDE 23.6 mmol/L (21-32); CHLORIDE SERUM 102 mmol/L (98-107); CREATININE SERUM 2.2 mg/dL (0.7-1.3); GLUCOSE SERUM 285 mg/dL (74-106); POTASSIUM SERUM 4.2 mmol/L (3.5-5.1); SODIUM SERUM 137 mmol/L (136-145)
--- NOTE | 2019-06-05 12:05 | NUR ---
DISCHARGE ORDER OBTAINED. SPOKE TO CASE MANAGEMENT, WAITING FOR OUTPATIENT PT ARRANGEMENTS, WILL FOLLOW UP. PER PATIENT, FAMILY CAN PICK HIM UP AFTER 4PM.
[2019-06-05 13:21] VITALS: BP 125/56
== END 2019-06-05 18:03 | disposition home or self-care (01) | DRG 553 ==
LOC: ED 14:25 → DU 19:40
PROVIDERS: Internal Medicine; Internal Medicine Nephrology; Internal Medicine Pulmonary Disease; ADMIT Internal Medicine Pulmonary Disease
DX: M10.9 Gout, unspecified (principal); N17.0 Acute kidney failure with tubular necrosis; I13.0 Hypertensive heart and chronic kidney disease with heart failure and stage 1 through stage 4 chronic kidney disease, or unspecified chronic kidney disease; K80.20 Calculus of gallbladder without cholecystitis without obstruction; E11.65 Type 2 diabetes mellitus with hyperglycemia; I50.9 Heart failure, unspecified; N18.3 Chronic kidney disease, stage 3 (moderate); E11.21 Type 2 diabetes mellitus with diabetic nephropathy; E11.22 Type 2 diabetes mellitus with diabetic chronic kidney disease; E78.5 Hyperlipidemia, unspecified; I48.91 Unspecified atrial fibrillation; D64.9 Anemia, unspecified; I25.10 Atherosclerotic heart disease of native coronary artery without angina pectoris; I25.2 Old myocardial infarction; Z79.4 Long term (current) use of insulin; Z68.26 Body mass index [BMI] 26.0-26.9, adult; Z95.1 Presence of aortocoronary bypass graft; Z79.84 Long term (current) use of oral hypoglycemic drugs
CPT/HCPCS: 78226; 82962; A9537; G0378; J0696; J1815; J2270; J2405; J2543; J3010; J3475; J3490; J7030; J7042; J7050; J7060; J7512; Q0092

== ENCOUNTER 2019-07-04 11:27 | Inpatient (IN) | payer OTHER ==
[~2019-07-04] VITALS: Ht 175.3 cm; Wt 79.4 kg
[~2019-07-04 11:27] MED LIST changes: +AMIODARONE200 MG PO; +ATORVASTATIN CA10 M1 PO; +ELIQUIS2.5 MG PO; +FAMOTIDINE20 M1 PO; +METOPROLOL TART25 M1 PO; +NATURAL IRON65 MG PO; +Z5 PO
--- NOTE | 2019-07-04 11:54 | NUR ---
PT COMES TO ER WITH C/O LEFT FOOT/BIG TOE DISCOLORATION X 1 MONTH. BIG TOE IS NECROTIC, PEDAL PULSES WEAK. PT DENIES ANY PAIN TO SITE, BUT REPORTSMILD NUMBNESS. PT IN NAD, RESP EVEN AND UNALBORED,ON RA @98%.
--- NOTE | 2019-07-04 12:39 | NUR ---
PT REPORTS RELIEF OF MILD PAIN TO LEFT THIGH AREA, VSS. NOOTHER COMPLIANTS. IV FLUIDS INFUSING ORDERED.
[2019-07-04 12:44] LABS: ALKALINE PHOSPHATASE 116 U/L (46-116); ALT/SGPT 11 U/L (16-63); AST/SGOT 21 U/L (15-37); BILIRUBIN TOTAL 0.9 mg/dL (0.20-1.00); CALCIUM 9.1 mg/dL (8.5-10.1); CARBON DIOXIDE 26.2 mmol/L (21-32); CHLORIDE SERUM 93 mmol/L (98-107); GLUCOSE SERUM 214 mg/dL (74-106); POTASSIUM SERUM 4.8 mmol/L (3.5-5.1); SODIUM SERUM 132 mmol/L (136-145)
[2019-07-04 12:45] LABS: PLATELET COUNT 315 x10^3mcL (130-400)
[2019-07-04 12:47] LABS: BASOPHIL % 0 % (0-2); RED CELL DISTRIBUTION WIDTH 15.7 % (11.5-14.5)
[2019-07-04 12:51] LABS: ALBUMIN 2.9 g/dL (3.4-5.0); TOTAL PROTEIN, SERUM 8.7 g/dL (6.4-8.2)
--- NOTE | 2019-07-04 15:07 | NUR ---
IV ANBX INFUSED WELL WITH NO ADVESRE SIDE EFFECT. SL.
--- NOTE | 2019-07-04 15:54 | NUR ---
REPORT GIVEN TO GEOVANNY YANEZ, UPDATED ON STATUS, LABS AND VITALS. PT STABLE FOR TRANSFER. ALL BELONGINGS WITH PT. SL-INTACT.
[2019-07-04 16:40] VITALS: BP 105/62
--- NOTE | 2019-07-04 16:44 | NUR ---
RECEIVED PT FROM ED VIA [email or web address]. ORIENTED PT TO ROOM AND SURROUNDINGS. IV NOTED TO LFA PATENT AND INTACT. INSTRUCTED PT ON THE USE OF CALL LIGHT FOR ASSISTANCE. WILL CONTINUE TO MONITOR
--- NOTE | 2019-07-04 17:24 | NUR ---
CALLED AND SPOKE TO , READ TO HIM ALL PTS HOME MEDICATION AND WITH ALL HIS HOME MEDICATION, SAYS TO HOLD LASIX, ZAROXYLYN, ALDACTONE. NEW ORDER RECEIVED, ACCUCHECK AC/HS AND TO CONTINUE NPH 15UNITS SQ BID, PLEASE SEE CPOE FOR DETAILED OF HOME MEDICATION ORDER, HE ALSO CONSULTED FOR SURGICAL CONSULT. WOLF RN ASSIGNED TO THIS PT MADE AWARE OF ABOVE.
--- NOTE | 2019-07-04 17:31 | NUR ---
CHECKED BS IT IS 93
--- NOTE | 2019-07-04 17:43 | NUR ---
ENDORESED PT TO RN ELISE
--- NOTE | 2019-07-04 18:03 | NUR ---
RECEIVED PATIENT FROM SURU RN, PATIENT AWAKE AND ALERT IN BED SITTING UP EATING HIS DINNER. NO COMPLAIN. VANCOMYCIN 1GM IVPB INFUSING TO LFA INTACT AND PATENT. OBTAIN CONSENT FOR AMPUTATION OF FIRST AND THIRD TOES OF LEFT FOOT. PATIENT REPORT THAT DR. WALLACE ALREADY TALK TO HIM AND INFORM HIM OF AMPUTATION. NO FURTHER QUESTIONS. NEED MET. CALL LIGHT WITHIN REACH.
--- NOTE | 2019-07-04 19:50 | NUR ---
RECEIVED REPORT FROM AM NURSE. PT LAYING DOWN IN BED. PT AAOX4. FOLLOW COMMANDS, ABLE TO MAKE NEEDS KNOWN. MED-PREM. DENIES CP/PRESSURE AT THIS TIME. WEAK PEDAL. EDEMA TO LEFT FOOT NOTED. LUNG SOUNDS CTA. BREATHING EVEN AND UNLABORED ON RA. NO SOB NOTED. NO ACUTE DISTRESS NOTED. ABD SOFT AND NONDISTEDED. DENIES N/V/D. LAST BM 07/04/19. VOIDS FREELY BRP. GENERALIZED WEAKNESS. AMBULATORY WITH WALKER. DARK DISCOLORATION TO LEFT GREAT TOE AND LEFT THIRD TOE. DENIES ANY PAIN. IV TO LFA RUNNING NS AT 80ML/HR. IV SITE FREE FROM REDNESS AND SWELLING. BED AT LOWEST SETTING. SIDE RAILS X2 UP. CALL LIGHT WITHING REACH. WILL CONTINUE TO MONITOR.
[2019-07-04 19:55] VITALS: BP 90/54
--- NOTE | 2019-07-04 20:34 | NUR ---
WILL HOLD ELIQUIS PER DR CASTRO. PT IS HAVING SX TOMORROW.
--- NOTE | 2019-07-05 00:15 | NUR ---
PT AWAKE, STATED FEELING TINGLING LIKE SENSATION TO FEET. ALLAVIATED BY SITTING UP IN BED. BREATHING EVEN AND UNLABORED ON RA. NO ACUTE DISTRESS NOTED. BED AT LOWEST SETTING. SIDE RAILS X2 UP. CALL LIGHT WITHING REACH. WILL CONTINUE TO MONITOR.
--- NOTE | 2019-07-05 05:13 | NUR ---
PT SLEPT AT INTERVALS THROGHOUT THE NIGHT. BREATHING EVEN AND UNLABORED ON RA. NO ACUTE DISTRESS NOTED. C/O TINGLING LIKE PAIN ON FEET. ELEVATED FEET ON PILLOWS. PT STATED RELIEF WITH FEET ELEVATED. NO OTHER SIGNIFICANT CHANGES DURING SHIFT. ALL NEEDS ASSESSED AND ATTENDED TO. IV TO RFA INFUSING NS AT 80ML/HR. SITE FREE FROM REDNESS AND SWELLING. BED AT LOWEST SETTING. SIDE RAILS X2 UP. CALL LIGHT WITHING REACH. WILL ENDORSE CARE TO AM NURSE.
[2019-07-05 06:06] VITALS: BP 93/53
[2019-07-05 06:57] LABS: BASOPHIL % 0.2 % (0-2); PLATELET COUNT 256 x10^3mcL (130-400)
[2019-07-05 07:09] LABS: ALKALINE PHOSPHATASE 109 U/L (46-116); ALT/SGPT 8 U/L (16-63); AST/SGOT 16 U/L (15-37); CALCIUM 8.5 mg/dL (8.5-10.1); CARBON DIOXIDE 25.3 mmol/L (21-32); CHLORIDE SERUM 97 mmol/L (98-107); CREATININE SERUM 3.9 mg/dL (0.7-1.3); GLUCOSE SERUM 140 mg/dL (74-106); POTASSIUM SERUM 4.6 mmol/L (3.5-5.1); SODIUM SERUM 135 mmol/L (136-145); TOTAL PROTEIN, SERUM 7.9 g/dL (6.4-8.2)
[2019-07-05 07:14] LABS: CHOLESTEROL/HDL RATIO 3.8
[2019-07-05 07:15] LABS: ALBUMIN 2.6 g/dL (3.4-5.0)
[2019-07-05 07:17] LABS: RED CELL DISTRIBUTION WIDTH 15.4 % (11.5-14.5)
--- NOTE | 2019-07-05 07:30 | NUR ---
ENDORSED CARE TO BE[place] LOY[place]A.
--- NOTE | 2019-07-05 07:54 | NUR ---
A+OX4, NO RESPRIATORY DISTRESS NOTED, MEDSURG, WEAK L PEDAL PULSE, EDEMA LLE, LUNG SOUNDS CTA, TOLERATING RA, BOWEL SOUNDS ACTIVE, VOIDING FREELY, GENERALIZED WEAKNESS, DARK DISCOLORATION TO L GREAT TOE AND L 3RD TOE, IV IN RFA WITH NS @ 80 ML/HR, SITE WNL.
[2019-07-05 08:12] VITALS: BP 101/60
--- NOTE | 2019-07-05 10:04 | NUR ---
PT RESTING IN BED, NO RESPIRATORY DISTRESS NOTED, COMPLAINING OF 8/10 LLE PAIN, NORCO PO GIVEN, CALL LIGHT WITHIN REACH.
--- NOTE | 2019-07-05 12:17 | NUR ---
PT RESTING IN BED, NO RESPIRATORY DISTRESS NOTED, DENIES PAIN, CALL LIGHT WITHIN REACH.
[2019-07-05 12:49] VITALS: BP 107/61
--- NOTE | 2019-07-05 14:11 | NUR ---
CALLED AND SPOKE TO AND MADE HIM AWARE THAT PT SURGERY WAS HELD TODAY AND NEW DIET ORDER RECEIVED. DARCI YANEZ ASSIGNED TO THIS PT MADE AWARE OF ABOVE.
[2019-07-05 16:57] VITALS: BP 105/59
--- NOTE | 2019-07-05 17:18 | NUR ---
PT RESTING IN BED, NO RESPIRATORY DISTRESS NOTED, DENIES PAIN IN LLE AT THIS TIME, FAMILY AT BEDSIDE, CALL LIGHT WITHIN REACH.
--- NOTE | 2019-07-05 17:42 | NUR ---
DR WALLACE TELEPHONED AND STATED SHE WILL PERFORM AMPUTATION TOMMORROW 07/06 AND PT TO BE PLACED NPO AFTER MIDNIGHT. CHARGE NURSE NOTIFIED.
--- NOTE | 2019-07-05 19:14 | NUR ---
ENDORSED CARE TO LAURE YANEZ.
--- NOTE | 2019-07-05 19:20 | NUR ---
RECEIVED PT AMBULATING BACK TO BED FROM BATHROOM WITH STRONG AND STEADY GAIT, WEAKNESS TO LLE. DARK DISCOLORATION TO LEFT BIG TOE, GANGRENE, BRIANNA DENIES PAIN OR DISCOMFORT AT THIS TIME. PT SCHEDULED FOR AMPUTATION OF LEFT 1ST AND 3RD TOES TOMORROW WITH DR. WALLACE, PT AWARE, GIVEN OPPORTUNITY TO ASKS QUESTIONS. PT MADE AWARE FOR NEED TO BE NPO AT MIDNIGHT, PT VERBALIZED UNDERSTANDING. PT OFFERED SNACK BEFORE MIDNIGHT. AA/OX4, ABLE TO MAKE NEEDS KNOWN, SPEECH CLEAR AND APPROPRIATE. NO TELE, DENIES CP OR PRESSURE. PULSES PRESENT AND EQUAL THROUGHOUT, SWELLING TO LLE. BREATHING ON RA, EVEN AND UNLABORED, DENIES SOB OR DYSPNEA. ABD ROUND AND SOFT WITH ACTIVE BOWEL SOUNDS, NO N/V/D. FREELY VOIDS URINE WITH BRP. AMBULATORY AND ABLE TO REPOSITION SELF IN BED, WEAKNESS TO LLE. IV TO RFA IN PLACE, DRY, PATENT, INTACT, AND INFUSING IVF WELL. NO PAIN, REDNESS OR SWELLING NOTED. COMFORT AND SAFETY MEASURES IN PLACE. ALL NEEDS ASSESSED AND ATTENDED TO. CALL LIGHT WITHIN REACH. WILL CONTINUE TO MONITOR
--- NOTE | 2019-07-05 20:45 | NUR ---
PT PLACE ON TELE #17, SINUS ARRHYTMIA, HR 72.
--- NOTE | 2019-07-05 20:45 | NUR ---
PT PLACE ON TELE #17, SINUS RHYTHM WITH 1ST DEGREE BLOCK AND BBB, HR 72. DENIES CP OR PRESSURE
[2019-07-05 21:14] VITALS: BP 95/57
--- NOTE | 2019-07-05 21:47 | NUR ---
PT C/O 05/21 PAIN TO LEFT KNEE, REQUESTING [facility]CO FOR PAIN CONTROL. SPOKE WITH [employer]W CLEANER ROSE MARY AMOS TO RENEW NORCO ORDER FROM EARLIER AT THIS TIME. WILL CARRY OUT
[2019-07-06 02:40] LABS: microscopic required? YES; urine erythrocyte TRACE (NEGATIVE)
[2019-07-06 05:56] VITALS: BP 102/56
[2019-07-06 06:41] LABS: BASOPHIL % 0.2 % (0-2); PLATELET COUNT 243 x10^3mcL (130-400)
[2019-07-06 07:14] LABS: ALBUMIN 2.4 g/dL (3.4-5.0); ALKALINE PHOSPHATASE 92 U/L (46-116); AST/SGOT 32 U/L (15-37); BILIRUBIN TOTAL 0.7 mg/dL (0.20-1.00); CALCIUM 8.5 mg/dL (8.5-10.1); CHLORIDE SERUM 99 mmol/L (98-107); CREATININE SERUM 2.9 mg/dL (0.7-1.3); GLUCOSE SERUM 158 mg/dL (74-106); POTASSIUM SERUM 4.8 mmol/L (3.5-5.1); SODIUM SERUM 136 mmol/L (136-145); TOTAL PROTEIN, SERUM 7.4 g/dL (6.4-8.2)
[2019-07-06 07:24] LABS: RED CELL DISTRIBUTION WIDTH 15.6 % (11.5-14.5)
[2019-07-06 07:25] LABS: ALT/SGPT < 6 U/L (16-63)
--- NOTE | 2019-07-06 07:35 | NUR ---
RECEIVED PT IN NO ACUTE DISTRESS. AAOX4. RESP EVEN AND UNLABORED ON RA. NPO FOR PROCEDURE. LEFT GREAT TOE AND LEFT 3RD TOE BLACK, BRIANNA, NO DRAINAGE. PT REPORTS SHOOTING LIKE "BURSTS" OF PAIN, TOLERABLE AT THIS TIME. IV TO RFA, NO REDNESS OR SWELLING TO IV SITE. BED IN LOW POSITION, CALL LIGHT WITHIN REACH. WILL CONTINUE TO MONITOR.
[2019-07-06 07:50] VITALS: BP 97/65
--- NOTE | 2019-07-06 10:49 | NUR ---
SPOKE WITH DR. CASTRO OVER THE PHONE REGARDING PT'S TROP 0.103. PT DENIES CP OR PRESSURE. RECEIVED ORDERS FOR EKG, CBC, BMP, AND BNP LABS TOMORROW MORNING 07/07/19. ORDERS READ BACK.
--- NOTE | 2019-07-06 11:22 | NUR ---
DR. WALLACE AT BEDSIDE TO EVALUATE PT. PER DR. WALLACE, SURGERY WILL BE SCHEDULED FOR TOMORROW MORNING 07/07/19. PT VERBALIZED UNDERSTANDING. WILL CONTINUE TO MONITOR.
[2019-07-06 12:39] VITALS: BP 100/53
--- NOTE | 2019-07-06 15:36 | NUR ---
PT RESTING IN BED WATCHING TV. NO ACUTE DISTRESS. RESP EVEN AND UNLABORED ON RA. NO C/O PAIN. IVF INFUSING, NO REDNESS OR SWELLING TO IV SITE. CALL LIGHT WITHIN REACH. WILL CONTINUE TO MONITOR.
[2019-07-06 17:04] VITALS: BP 105/55
--- NOTE | 2019-07-06 18:29 | NUR ---
PT SITTING UP IN BED WATCHING TV. NO ACUTE DISTRESS. RESP EVEN AND UNLABORED ON RA. IVF INFUSING, NO REDNESS OR SWELLING NOTED. SMALL GAUZE DRESSING TO LEFT GREAT TOE, C/D/I. LEFT 3RD TOE GANGRENE, BRIANNA, NO DRAINAGE. NO C/O PAIN. INFORMED PT OF NPO STATUS AFTER MIDNIGHT FOR PROCEDURE IN AM, PT VERBALIZED UNDERSTANDING. BED IN LOW POSITION, CALL LIGHT WITHIN REACH. WILL ENDORSE TO ONCOMING SHIFT.
--- NOTE | 2019-07-06 19:30 | NUR ---
RECEIVED PT LAYING IN BED, NO ACUTE DISTRESS OBSERVED. DARK DISCOLORATION TO LEFT BIG TOE AND LEFT 3 TOE, GANGRENE, HUMAN RESOURCES GENERALIST DENIES PAIN OR DISCOMFORT AT THIS TIME. PT SCHEDULED FOR AMPUTATION OF LEFT 1ST AND 3RD TOES TOMORROW MORNING, 07/07/[address] WALLACE, PT AWARE, GIVEN OPPORTUNITY TO ASKS QUESTIONS. PT MADE AWARE FOR NEED TO BE NPO AT MIDNIGHT, PT VERBALIZED UNDERSTANDING. PT OFFERED SNACK BEFORE MIDNIGHT. AA/OX4, ABLE TO MAKE NEEDS KNOWN, SPEECH CLEAR AND APPROPRIATE. NO TELE, DENIES CP OR PRESSURE. PULSES PRESENT AND EQUAL THROUGHOUT, SWELLING TO LLE. BREATHING ON RA, EVEN AND UNLABORED, DENIES SOB OR DYSPNEA. ABD ROUND AND SOFT WITH ACTIVE BOWEL SOUNDS, NO N/V/D. FREELY VOIDS URINE WITH BRP. AMBULATORY AND ABLE TO REPOSITION SELF IN BED, WEAKNESS TO LLE. IV TO LFA IN PLACE, DRY, PATENT, INTACT, AND INFUSING IVF WELL. NO PAIN, REDNESS OR SWELLING NOTED. COMFORT AND SAFETY MEASURES IN PLACE. ALL NEEDS ASSESSED AND ATTENDED TO. CALL LIGHT WITHIN REACH. WILL CONTINUE TO MONITOR
[2019-07-06 20:23] VITALS: BP 98/57
[2019-07-07 05:39] VITALS: BP 103/59
[2019-07-07 06:10] LABS: BASOPHIL % 0.3 % (0-2); PLATELET COUNT 239 x10^3mcL (130-400)
[2019-07-07 06:17] LABS: RED CELL DISTRIBUTION WIDTH 15.4 % (11.5-14.5)
--- NOTE | 2019-07-07 06:33 | NUR ---
PER MORNING NEWS PRODUCER ARACELI, PT'S SURGERY SCHEDULED FOR THIS MORNING AT 1020. PT MADE AWARE. CHG WIPES DONE. LLE SURGICAL SITE MARKED. IV TO LFA #[address], INFUSING IVF WELL, NO PAIN, REDNESS, OR SWELLING NOTED. PT NPO SINCE MIDNIGHT ORDERED. CHECKLIST AND SIGNED CONSENT IN CHART. NO SIGNIFICANT CHANGES TO REPORT, PT COMPLIED WITH NURSING CARE THROUGHOUT THE SHIFT WITH NO ACUTE EVENTS OVERNIGHT. NO ACUTE DISTRESS OBSERVED AT THIS TIME, PT LAYING IN BED, BREATHING EVEN AND UNLABORED. COMFORT AND SAFETY MEASURES MAINTAINED. ALL NEEDS ASSESSED AND ATTENDED TO. CALL LIGHT WITHIN REACH. WILL CONTINUE TO MONITOR AND ENDORSE CARE TO DAY SHIFT NURSE
[2019-07-07 06:38] LABS: ALKALINE PHOSPHATASE 95 U/L (46-116); ALT/SGPT 14 U/L (16-63); AST/SGOT 12 U/L (15-37); BILIRUBIN TOTAL 0.67 mg/dL (0.20-1.00); CALCIUM 8.5 mg/dL (8.5-10.1); CHLORIDE SERUM 102 mmol/L (98-107); CREATININE SERUM 2.5 mg/dL (0.7-1.3); GLUCOSE SERUM 155 mg/dL (74-106); POTASSIUM SERUM 4.6 mmol/L (3.5-5.1); SODIUM SERUM 138 mmol/L (136-145)
[2019-07-07 06:47] LABS: ALBUMIN 2.5 g/dL (3.4-5.0)
--- NOTE | 2019-07-07 08:00 | NUR ---
RECEIVED PATIENT AWAKE AND VERY PLEASANT AND UPBEAT. NOTED THE GREAT TOE AND THE THIRD TOE OF THE LEFT FOOT IS BLACKENED AND WITH THE SWEET ODOR OF GANGRENE. THE AREA IS WITH SWELLING TO THE FOOT AND PULSES ARE VERY WEAK TO BOTH EXTREMITIES. PATIENT AHS NO COMPLAINT OF PAIN AT THIS TIME. LUNGS RE DIMINISHED AND PATIENT HAS BEEN ON TELE MONITOR AND WITH HISTORY OF CARDIAC ARREST AND CABG. HE HAS BEEN AMBULATORY AND HAD PER THE PATIENT HAD THIS ISSUE FOR SOME TIME NOW. HE HAS ALSO DIABETES WITH THE LAST BLOOD SUGAR AT 153 AND COVERAGE HELD DUE TO NPO STATUS. THE VITALS AT THIS TIME AT 103/59 AND THEN TAKEN AT 830 AND AT 99/55. NO FEVER NOTEDA ND PATIENT NEETU BEEN 99-100% ON ROOM AIR. NICOLASA GALVAN NOTED TROPONIN THIS AM AT 0.111 AND THE MAG IS AT 1.6 AND THE DOCTOR IS AWARE. PATEINT HAS BEEN ON NORMAL SALINE AT 40 AND THE IV SITE INTACT. PATIENT HAS HISTORY OF CKD, AND HTN. HELD MEDICATION FOR BP THE BP IS LOW. NICOLASA SO FOR SURGERY TODAY FOR AMPUTATION OF THE GREAT LEFT TOE AND THE THIRD LEFT TOE. PATIENT HAS SIGNED CONSENT AND CHECKLIST WAS STARTED. HE IS SCHEDULED FOR 1030AM WITH [place]. PATIENT HAS BEEN ADVISED OF THE PROCEDURE AND HAS NO NEW CONCERNS AT THIS TIME. OFFERED PAIN MEDICATION BUT DENIES ANY ACUTE PAIN.
--- NOTE | 2019-07-07 08:45 | NUR ---
GAVE REPORT TO OR STAFF AND PATIENT IS FOR SURGERY AT 1030 TODAY. THE STUDENT IS GOING TO BE GOING WELL AND PATIENT GAVE PERMISSION. PATIENT HAS BEEN WITH NO COMPLAINTS OF PAIN BUT HAS HAD PAIN AND IT IS LOCATED THTE LEFT FOOT. NICOLASA SANCHEZ BEEN AMBULATORY. LAST BLOOD SUGAR AT 153 AND HAS BEEN ON ELIQUIS BUT ALSO HELD AT THIS TIME.
[2019-07-07 08:48] VITALS: BP 99/55
--- NOTE | 2019-07-07 09:52 | NUR ---
DOWN FOR PROCEDURE AT THIS TIME TELE REMOVED AND TAKEN TO THE IT SYSTEMS ENGINEER. AWAITING RETURN.
--- NOTE | 2019-07-07 12:50 | NUR ---
RECEIVED POST OPERATIVE AND TOLERATED THE PROCEUDRE WELL. PATIENT HAS BEEN NPO AND CALLED FOR ORDER FOR DIET AND AWAITING A CALL BACK.
[2019-07-07 13:44] VITALS: BP 118/69
--- NOTE | 2019-07-07 15:53 | NUR ---
PATIENT DENIES PAIN AT THIS TIME. RECEIVED DIET ADN TOLERATED WELL. PATIENT HAS HAD THE ZOSYN AND VANCO AND HIS MEDICATION ORDERD PRE OPERATIVE. DID NOT GIVE NPH HE WAS IN SURGERY AND GLUCOSE CHECK ALSO WHILE IN SURGERY. DRESSING TO [facility] GOOT WITH SOME QUARTER SIZED DRAIANGE NOTED. WILL CONTINUE TO MONITOR.
[2019-07-07 17:30] VITALS: BP 99/57
--- NOTE | 2019-07-07 17:39 | NUR ---
PATIENT IS TO RESUME ELIQUIS INDICATED. PATIENT WITH NO COMPLAINTS OF PAIN AT THIS TIME.
--- NOTE | 2019-07-07 18:15 | NUR ---
NOTED THERE IS BLOOD ON THE DRESSING. REINFORCED THE SITE AND WILL CONTINUE TO MONITOR.
--- NOTE | 2019-07-07 20:01 | NUR ---
RECEIVED PATIENT IN BED AWAKE, ALERT AND ORIENTED WITH NO C/O POST OPERATIVE GABRIELA AT THIS TIME. DRESSING TO LEFT FOOT CDI ELEVATED WITH PILLOWS. TELE#17 NSR ON MONITOR. DENIES CHEST DISCOMFORT. IV TO LFA INTACT AND INFUSING WELL. WILL CONTINUE TO MONITOR. CALL LIGHT WITHIN REACH.
[2019-07-07 20:55] VITALS: BP 93/54
--- NOTE | 2019-07-07 21:22 | NUR ---
C/O POST OPERATIVE PAIN AT SALE OF 06/21 PER PATIENT, NORCO 1 TAB PO GIVEN PRESCRIBED. WILL CONTINUE TO MONITOR.
--- NOTE | 2019-07-07 22:20 | NUR ---
RELIEF NOTED PER PATIENT AFTER PAIN MEDS WAS GIVEN. WILL CONTINUE TO MONITOR.
--- NOTE | 2019-07-08 05:11 | NUR ---
SLEPT AT LONG INTERVALS, C/O POST OPERATIVE PAIN X1 THE ENTIRE SHIFT AND MEDCIATED PRESCRIBED. ALL NEEDS ATTENDED. DRESSING TO LEFT FOOT CDI.
[2019-07-08 05:39] VITALS: BP 99/56
--- NOTE | 2019-07-08 07:05 | NUR ---
RECEIVED BEDSIDE REPORT FROM FITTER/WELDER NURSE AT THIS TIME. PATIENT RESTING COMFORTABLY IN BED. NO APPARENT DISTRESS OR DISCOMFORT NOTED. BREATHING EVEN AND UNLABORED. NO RESPIRATORY DISTRESS OR DISCOMFORT NOTED. PATIENT DENIES SHORTNESS OF BREATH. PATIENT DENIES CHEST PAIN/PRESSURE AT THIS TIME. DRESSING CDI TO LEFT FOOT. PATIENT DENIES PAIN/DISCOMFORT AT THIS TIME. IV PATENT AND INTACT. ALL QUESTIONS AND CONCERNS ADDRESSED. ALL NEEDS ATTENDED TO. WILL CONTINUE TO MONITOR
[2019-07-08 07:06] LABS: ALKALINE PHOSPHATASE 84 U/L (46-116); ALT/SGPT 7 U/L (16-63); AST/SGOT 19 U/L (15-37); BILIRUBIN TOTAL 0.6 mg/dL (0.20-1.00); CALCIUM 8.6 mg/dL (8.5-10.1); CARBON DIOXIDE 24.6 mmol/L (21-32); CHLORIDE SERUM 100 mmol/L (98-107); GLUCOSE SERUM 89 mg/dL (74-106); SODIUM SERUM 136 mmol/L (136-145)
[2019-07-08 07:09] LABS: ALBUMIN 2.4 g/dL (3.4-5.0)
[2019-07-08 07:14] LABS: CALCIUM 8.4 mg/dL (8.5-10.1); CARBON DIOXIDE 22.9 mmol/L (21-32); CHLORIDE SERUM 101 mmol/L (98-107); GLUCOSE SERUM 86 mg/dL (74-106); POTASSIUM SERUM 4.2 mmol/L (3.5-5.1); SODIUM SERUM 137 mmol/L (136-145)
[2019-07-08 07:37] LABS: BASOPHIL % 0.5 % (0-2); PLATELET COUNT 254 x10^3mcL (130-400)
[2019-07-08 09:00] VITALS: BP 100/54
--- NOTE | 2019-07-08 10:00 | NUR ---
ALL MORNING MEDICATIONS ADMINISTERED AT THIS TIME. PATIENT TOLERATED WELL. NO APPARENT ADVERSE EFFECTS NOTED. ALL NEEDS ATTENDED TO. WILL CONTINUE TO MONITOR
--- NOTE | 2019-07-08 12:14 | NUR ---
PATIENT BLOOD SUGAR 215 AT THIS TIME. 6 UNITS OF INSULIN REQUIRED. ALL NEEDS ATTENDED TO. WILL CONTINUE TO MONITOR
[2019-07-08 14:01] VITALS: BP 118/63
--- NOTE | 2019-07-08 15:00 | NUR ---
PATIENT RESTING COMFORTABLY IN BED AT THIS TIME. NO APPARENT DISTRESS OR DISCOMFORT NOTED. BREATHING EVEN AND UNLABORED. IV PATENT AND INTACT. ALL NEEDS ATTENDED TO. WILL CONTINUE TO MONITOR
--- NOTE | 2019-07-08 16:27 | NUR ---
GAVE REPORT TO NAVI YANEZ AT [facility] AT THIS TIME. ALL QUESTIONS AND CONCERNS ADDRESSED. CALL BACK NUMBER PROVIDED FOR AWA LONG. ALL NEEDS ATTENDED TO. AWAITING CLINICAL ANALYST FROM [facility] AT 1830
[2019-07-08 16:34] VITALS: BP 118/63
[2019-07-08 17:16] VITALS: BP 117/64
--- NOTE | 2019-07-08 18:25 | NUR ---
PATIENT STABLE TO BE DISCHARGED TO SNF. DISCHARGE INSTRUCTIONS GIVEN WELL EDUCATION. INSTRUCTED PATIENT ABOUT FOLLOW UP APPOINTMENT. PATIENT VERBALIZES UNDERSTANDING. IV ACCESS REMAINED TO LFA PATENT AND INTACT. ID BANDS REMOVED. TELE MONITOR REMOVED AND RETURNED TO ASSEMBLY MACHINE OPERATOR. ALL BELONGINGS WITH PATIENT. ALL QUESTIONS AND CONCERNS ADDRESSED. ALL NEEDS ATTENDED TO. ESCORTED DOWN BY [facility] AT THIS TIME
[2019-07-15 11:12] VITALS: Ht 175.3 cm; Wt 79.4 kg
== END 2019-07-08 18:25 | DRG 240 ==
LOC: ED 11:27 → DU 15:13 → MU 16:45 → DU 07-05 20:41
PROVIDERS: Emergency Medicine; Internal Medicine Cardiovascular Disease; Internal Medicine Nephrology; Internal Medicine Pulmonary Disease; Surgery; ADMIT Internal Medicine
PROC: 0Y6N0ZC Detachment at Left Foot, Partial 3rd Ray, Open Approach (ICD-10-PCS; 2019-07-07)
PROC: 0Y6N0Z9 Detachment at Left Foot, Partial 1st Ray, Open Approach (ICD-10-PCS; principal; 2019-07-07 10:30)
DX: E11.52 Type 2 diabetes mellitus with diabetic peripheral angiopathy with gangrene (principal); I96 Gangrene, not elsewhere classified; M86.9 Osteomyelitis, unspecified; N17.9 Acute kidney failure, unspecified; N18.3 Chronic kidney disease, stage 3 (moderate); I12.9 Hypertensive chronic kidney disease with stage 1 through stage 4 chronic kidney disease, or unspecified chronic kidney disease; E11.22 Type 2 diabetes mellitus with diabetic chronic kidney disease; E11.65 Type 2 diabetes mellitus with hyperglycemia; E11.21 Type 2 diabetes mellitus with diabetic nephropathy; E11.69 Type 2 diabetes mellitus with other specified complication; F12.10 Cannabis abuse, uncomplicated; I25.10 Atherosclerotic heart disease of native coronary artery without angina pectoris; M10.9 Gout, unspecified; I25.2 Old myocardial infarction; Z79.4 Long term (current) use of insulin; Z95.1 Presence of aortocoronary bypass graft; Z87.891 Personal history of nicotine dependence
CPT/HCPCS: 82962; 83880; 97116-GP; G0378; J0690; J1815; J1885; J2250; J2543; J2704; J3010; J3370; J3475; J3490; J7030; Q0092

== ENCOUNTER 2019-08-06 10:18 | Inpatient (IN) | payer OTHER ==
[~2019-08-06] VITALS: Ht 179.1 cm; Wt 75.0 kg
[2019-08-06 11:15] VITALS: Ht 179.1 cm; Wt 75.0 kg
--- NOTE | 2019-08-06 11:15 | NUR ---
PT'S CARE ASSUMED AT THIS TIME.
--- NOTE | 2019-08-06 11:25 | NUR ---
PT AWARE OF NEEDED URINE SPECIMEN. URINE CUP GIVEN TO PT.
[2019-08-06 11:45] LABS: BASOPHIL % 0.2 % (0-2); PLATELET COUNT 319 x10^3mcL (130-400)
--- NOTE | 2019-08-06 11:50 | NUR ---
PT GIVEN WARM BLANKET.
[2019-08-06 11:54] LABS: microscopic required? YES; urine erythrocyte 3+ (NEGATIVE)
[2019-08-06 11:59] LABS: ALKALINE PHOSPHATASE 142 U/L (46-116); ALT/SGPT 19 U/L (16-63); AST/SGOT 31 U/L (15-37); BILIRUBIN TOTAL 1.1 mg/dL (0.20-1.00); CALCIUM 9.4 mg/dL (8.5-10.1); CARBON DIOXIDE 27.8 mmol/L (21-32); CHLORIDE SERUM 95 mmol/L (98-107); CREATININE SERUM 2.7 mg/dL (0.7-1.3); GLUCOSE SERUM 219 mg/dL (74-106); POTASSIUM SERUM 4.8 mmol/L (3.5-5.1); SODIUM SERUM 132 mmol/L (136-145)
[2019-08-06 12:02] LABS: ALBUMIN 2.8 g/dL (3.4-5.0); TOTAL PROTEIN, SERUM 9.1 g/dL (6.4-8.2)
--- NOTE | 2019-08-06 12:08 | NUR ---
PT TO CT AT THIS TIME VIA WHEELCHAIR.
[2019-08-06 12:09] LABS: RED CELL DISTRIBUTION WIDTH 16.4 % (11.5-14.5)
--- NOTE | 2019-08-06 12:35 | NUR ---
ANTIBIOTIC ADMINISTRATION PENDING COLLECTION OF BLOOD CULTURES.
--- NOTE | 2019-08-06 14:12 | NUR ---
PT ADMITTED (MED SURG)
--- NOTE | 2019-08-06 15:29 | NUR ---
REPORT TO GAGAN YANEZ
[2019-08-06 16:26] VITALS: BP 121/61
--- NOTE | 2019-08-06 16:38 | NUR ---
RECEIVED FROM ER, TRANSPORTED VIA [facility]. AWAKE AND ALERT, ORIENTED TO NAME, PLACE, TIME AND SITUATION. AMBULATED INTO ROOM USING HIS WALKER. BREATHING EVEN AND UNLABORED ON ROOM AIR. MED SURG PT, DENIES HAVING ANY CHEST PAIN OR CHEST DISCOMFORT. LARGE SURGICAL SCAR TO STERNUM. SCAR NOTED TO RIGHT LEG. OPEN ULCER TO SACRUM, OPTIOFIAM APPLIED. SEE PHOTODOCUMENTATION. DRESSING TO LEFT FOOT, REMOVED. NOTED WOUND TO 1ST TOE (HX OF LEFT 1ST AND 3RD TOE AMPUTATION), SEE PHOTODOCUMENTATION AND SKIN PROBLEM ASSESSMENT. APPLIED NON-ADHERING GAUZE, COVERED WITH STERIGAUZE, SECURED WITH TAPE. INSTRUCTED ON USE OF CALL LIGHT TO CALL FOR ASSISTANCE. PLACED WITHIN EASY REACH. 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 PLACED ON CONTACT ISOLATION. ENDORSED TO NURSE LOYOLA
--- NOTE | 2019-08-06 17:52 | NUR ---
PT RESTING IN BED, NO RESPIRATORY DISTRESS NOTED, DENIES PAIN, CALL LIGHT WITHIN REACH.
--- NOTE | 2019-08-06 19:13 | NUR ---
ENDORSED CARE TO YARELIS YANEZ.
[2019-08-06 19:30] VITALS: BP 105/55
--- NOTE | 2019-08-06 19:30 | NUR ---
RECEIVED PT AWAKE ALERT AND VERBALLY RESPONSIVE.DENIES CHESTPAIN.BP 105/55 MMHG,HR 64.OPTIFOAM IN PLACED TO SACRAL AREA.DRESSING TO L TOE INTACT.LEFT 1ST AND 3RD TOE AMPUTATION NOTED.ON CONTACT ISOALTION FOR HX MDRO WOUND.WILL OBSERVE GOODHANDWASHING TECHNIQUE.WILL CONTINUE TO MONITOR.
--- NOTE | 2019-08-07 04:57 | NUR ---
PT SLEPT WELL.DENIES ANY PAIN ALL NIGHT.USES URINALS AND LAST VOID NOTED TO PÉREZ COLORED URINE.FLUIDS ENCOURAGED.DRESSNG TO L FOOT CDI.REMAINS ON CONTACT ISOLATION FOR MDRO WOUND.GOODHANDWASHING TECHNIQUE OBSERVED.ALL NEEDS MET.WILL CONTINUE TO MONITOR.
[2019-08-07 05:31] VITALS: BP 99/53
[2019-08-07 07:00] LABS: BASOPHIL % 0.2 % (0-2); PLATELET COUNT 290 x10^3mcL (130-400)
[2019-08-07 07:23] LABS: CALCIUM 9.3 mg/dL (8.5-10.1); CARBON DIOXIDE 26.9 mmol/L (21-32); CHLORIDE SERUM 98 mmol/L (98-107); CREATININE SERUM 2.1 mg/dL (0.7-1.3); GLUCOSE SERUM 148 mg/dL (74-106); MAGNESIUM 1.8 mg/dL (1.8-2.4); POTASSIUM SERUM 4.3 mmol/L (3.5-5.1); SODIUM SERUM 135 mmol/L (136-145)
[2019-08-07 07:33] LABS: IRON 32 ug/dL (65-170); TOTAL IRON BINDING CAPACITY 183 ug/dL (250-450)
[2019-08-07 07:35] LABS: RED CELL DISTRIBUTION WIDTH 16.3 % (11.5-14.5)
--- NOTE | 2019-08-07 07:52 | NUR ---
RECEIVED PATIENT FROM [facility]. PATIENT IN BED, NO COMPLAINTS OF PAIN AT THIS TIME. SPOKE W PATIENT ABOUT PLAN OF CARE TODAY INCLUDING MEDICATIONS, PATIENT AGREES. WILL AWAIT FOR DR HOFF TO ARRIVE AND SPEAK WITH PATIENT. 400 ML PÉREZ RED URINE IN URINAL THIS AM, AND WILL NOTIFY DR HOFF. CALL LIGHT IN REACH.
[2019-08-07 09:01] VITALS: BP 110/53
--- NOTE | 2019-08-07 10:34 | NUR ---
WOUND CARE NURSE HILLARY IN TO SEE PATIENT, STATES STAGE 2 ULCER TO COCCYX. L FOOT DRESSINGS OPENED AND EVALUATED, STATES PRIOR SUTURES REMAIN AND RECCOMMEND SURGICAL CONSULT FROM DR WALLACE. ALSO RECCOMMEND AIR MATTRESS AND VENOUS US TO L LEG. DR CASTRO ALSO IN TO EVAL PATIENT, ORDERED STAT EKG, THYROID PANEL. DR CASTRO MADE AWARE OF HEMATURIA AND HOLD OF LOPRESSOR THIS AM. PATIENT BP CURRENTLY 104/45 AND MADE AWARE. WILL UPDATE DR HOFF ONCE PATIENT ARRIVES. CALL LIGHT IN REACH AT THIS TIME.
--- NOTE | 2019-08-07 11:41 | NUR ---
WOUND CARE EVALUATION NOTE: REASON FOR EVALUATION: SACRAL PRESSURE ULCER AND LEFT FOOT SURGICAL WOUND SKIN ASSESSMENT DONE WITH THIS 73 Y/O MALE PT. ADMITTED FROM SNF TO [facility] WITH INITIAL DX OF HEMATURIA. PAST HX INCLUDE HTN, DM, CAD S/P BY PASS 03/2018 AND DIABETIC NEUROPATHY. PT HAD LEFT TOES AMPUTATION 06/2019. ALL ABOVE INFORMATION OBTAINED FROM ADMISSION H&P. AND PT. PT IS AAX4. PT. SKIN IS WARM AND DRY, PT ADMITTED WITH PRESSURE ULCER TO SACRALCOCCYX AREA.BLE DARKER PIGMENTATION, NO HAIR GROWTH, LEFT FOOT DORSAL PEDAL PULSES DIMINISHED COMPARE TO RIGHT. THICK CALLUSES TO BILATERAL HEELS. PLAN OF CARE DISCUSSED WITH RD, PRIMARY RN AND PT. PT VERBALIZES UNDERSTANDING. INTEGUMENTARY: -LEFT FOOT S/P AMPUTATION INFECTED SURGICAL WOUNDS LEFT METATARSAL 5X3 CM UTD AND 3RD DIGIT TOE 1X1CM,UTD BOTH WOUND BEDS ARE 100% BROWN AND BLACK SLOUGH TISSUE, WITH SUTURES VISIBLE, BOTH WOUNDS WITH SMALL AMOUNT OF PURULENT DRAINAGE , MILD FOUL ODOR, DOMINGA WOUND SKIN INTACT, ERYTHEMA AND SWELLING,0/10 -SACRALCOCCYX PRESSURE ULCER STAGE 2 WITH 1.5X1.5CM, SUPERFICIAL DEPTH, WOUND BED 100% PINK AND WITH GRANULATING TISSUE, MOIST AND CLEAN, NO ODOR, DOMINGA-WOUND SKIN INTACT. RECOMMENDATIONS: -SURGEON TO CONSULT LEFT FOOT WOUND. -ARTERIAL AND VENOUS ULTRA SOUND -CLEANSE SACRALCOCCYX WITH NS. PAT. DRY APPLY Z GUARD AND OPTIFOAM QDAY AND PRN IF SOILING -CLEANSE LEFT FOOT SURGICAL WOUNDS WITH WOUND CARE SOLUTION, PAT DRY, APPLY WITH SOAKED BETADINE ADAPTIC DRESSING, COVER WITH DRY DRESSING AND WRAP WITH KERLIX ROLL QD AND PRN IF SOILING -OFFLOAD BILATERAL HEELS BY PLACING PILLOWS UNDER CALVES UNLESS OTHERWISE CONTRAINDICATED -PRESSURE REDISTRIBUTION SURFACE THERAPY -TURN AND REPOSITION Q2H, OFFLOAD SACRALCOCCYX -CONTINUE TO FOLLOW RD RECOMMENDATIONS RECOMMENDATIONS DISCUSSED WITH PRIMARY RN PLEASE CONTACT WOUND CARE NURSE FOR ANY QUESTIONS AND CHANGES IN SKIN CONDITION.
--- NOTE | 2019-08-07 14:48 | NUR ---
DR HOFF ARRIVED TO SPEAK WITH PATIENT. INFORMED DR HOFF OF TODAYS URINE OUTPUT, WOUND CONSULT RECCOMMENDATIONS, HYPOTENSION THIS AM, WELL CONSULT FROM DR CASTRO. DR HOFF STATES TO PATIENT THAT HE IS CLEARED FROM NEPHROLOGY STANDPOINT, HOWEVER URINE CULTURE ARE STILL PENDING. PATIENT VERBALIZES UNDERSTANDING. ALSO STATES LIKELY TO STAY ONE MORE DAY AND PATIENT AGREES. PHYSICAL THERAPY, SURGICAL CONSULT, AND US VENOUS TO L LEG ALSO ORDERED. PATIENT ALSO ENCOURAGED TO AMBULATE PER DR HOFF. PATIENT HAS NO COMPLAINTS OF PAIN AT THIS TIME, CALL LIGHT IN REACH.
[2019-08-07 17:01] VITALS: BP 114/51
--- NOTE | 2019-08-07 18:13 | NUR ---
PATIENT AT BEDSIDE, EATING DINNER TRAY. NO COMPLAINTS AT THIS TIME. WILL ENDORSE TO ONCOMING NURSE. L FOOT WOUND CULTURE AND URINE CULTURE RETURNED W GRAM NEGATIVE BACILLI, CHARGE NURSE ANGELES MADE AWARE. CALL LIGHT IN REACH
[2019-08-07 19:15] VITALS: BP 105/51
--- NOTE | 2019-08-07 19:15 | NUR ---
RECEIVED PT AWAKE ALERT AND VERBALLY RESPONSIVE.DENIES CHESTPAIN AT THIS TIME.BP 105/51 MMHG,HR 60.LAST VOID TO DARK AMELIE COLORED URINE ,EMPTIED FROM URINAL 250ML.L FOOT WITH DRESSING AND SECURED WITH JOLENE WRAP.DENIES ANY PAIN AT THIS TIME.ON CONTACT ISOLATION FOR MDRO WOUND.WILL OBSERVE GOODHANDWASHING TECHNIQUE.WILL CONTINUE TO MONITOR.
--- NOTE | 2019-08-07 20:15 | NUR ---
SEEN BY DR. WALLACE AND REMOVED SUTURE TO AMPUTATION SITE.NOTED L GREAT TOE WITH BLACK ESCHAR DTI AND SOME DRAINAGE WITH FOUL ODOR.3RD TOE TO BLACKISH DISCOLORATION.BETADINE SOAK DONE AND COVERED WITH DRESSING AND WRAP WITH JOLENE WRAP.TOLERATED PROCEDURE.WILL CONTINUE TO MONITOR
[2019-08-07 20:23] VITALS: BP 116/53
--- NOTE | 2019-08-08 05:00 | NUR ---
PT SLEPT WELL ALL NIGHT.MEDICATED WITH NORCO 5/325 MG PO X1 FOR FOOT PAIN WITH GOOD RELIEF.DRESSING TO L FOOT CDI.ON CONTACT ISOLATION FOR MDRO WOUND.GOODHANDWASHING TECHNIQUE OBSERVED.ALL NEEDS MET.WILL CONTINUE TO MONITOR.
[2019-08-08 05:13] VITALS: BP 108/59
[2019-08-08 06:26] LABS: BASOPHIL % 0.3 % (0-2); PLATELET COUNT 206 x10^3mcL (130-400)
[2019-08-08 06:44] LABS: CALCIUM 8.7 mg/dL (8.5-10.1); CARBON DIOXIDE 24.8 mmol/L (21-32); CHLORIDE SERUM 103 mmol/L (98-107); CREATININE SERUM 1.6 mg/dL (0.7-1.3); GLUCOSE SERUM 169 mg/dL (74-106); MAGNESIUM 1.6 mg/dL (1.8-2.4); POTASSIUM SERUM 4.3 mmol/L (3.5-5.1); SODIUM SERUM 138 mmol/L (136-145)
--- NOTE | 2019-08-08 08:00 | NUR ---
SHIFT ASSESSMENT DONE. PATIENT A/A/OX4; CLEAR SPEECH. NO RESP DISTRESS ON RA. NO TELE MONITOR. DENIED CHEST PAIN. VOID DARK AMELIE URINE. IVF OF NS 80CC/HR. IV SITE TO LFA INTACT. DSRG TO LT FOOT W/ JOLENE DRSG INTACT. DENIED PAIN. PRESSURE ULCER TO SCROTAL AREA 1.2 CM X 1.2 CM X 0.3 CM; NO DRAINAGE. Z GUARD APPLIED. AMBULATOED WITH SLOW GAIT. DENIED PAIN. CONTACT ISOLATION FOR HX OF WOUND CULTURE MDRO (+). CALL LIGHT IN REACH.
[2019-08-08 09:05] LABS: microalbumin:creatinine ratio 1258.7 (0.0-30.0)
[2019-08-08 09:08] VITALS: BP 113/49
--- NOTE | 2019-08-08 10:34 | NUR ---
DR. CASTRO CAME TO SEE PATIENT. TELE #6 APPLIED. UA SPECIMEN SENT.
[2019-08-08 11:31] LABS: microscopic required? YES; urine erythrocyte 3+ (NEGATIVE)
--- NOTE | 2019-08-08 12:29 | NUR ---
Initial Nutrition Assessment (220-B): TORIE DOHERTY 73M Dx: Hematuria, Renal Failure, UTI PMHx: CHF, HTN, DM, CKD, CAD, GOUT PSHx: s/p CABG Labs: BG 169H, BUN 45H, Cr 1.6H, Alb 2.8L, BiliT 1.1H, AlkPh 142H, Mg 1.6L, A1c 8.4H, RBC 3.00L, hgb 8.8L, HCT 26L, PT 11.4 H, PTT 37.7H, Meds: Colace, Cordarone, FeSo4, Humulin, Lipitor, Lopressor, Pepcid, Rocephin, Zofran Diet: CCHO PO intake since admission: >90% Ht: 70.5in Wt: 165# BMI: 23.4 Bed scale: 185.2# IBW: 169 %IBW: 98 UBW: 176# Age: 73 Food Allergies: NKFA Skin: Cameron: 19 Edema: none noted GI: Last BM: 08/07 RD Note (08/08): Wound consult received for sacral wound. destination specialist noted infected Sx wound L foot s/p amp, L metatarsal (5x3cm UTD), 3rd digit (1x1cm UTD); Stg2 P/U sacralcoccyx (1.5x1.5cm), pending Sx consult. Pt discussed during bed huddles, pending vascular Sx consult. Visited pt bedside, states still has pain in toe, but no pain in sacral area at this time, will need Sx soon r/t non-healing wound in toe. Pt also states moonitors BG at home and times 2 insulins at home; received education from DM educator earlier today. Discussed ONS w/ pt, agreeable to receiving. Attempted contact Dr Gallegos regarding diet & ONS, waiting callback. Problem with N/V/D/C: No Problems with: Chewing: No Swallowing: No Current appetite: Good Recent wt change: No %wt change: No Vitamin/Supplement use: No Special diet at home: Regular Physical activity: N/A Nutrition education given (specify specific nutrition education and handout given): None given at this time. Food-drug interactions? Education given? None given at this time. Estimated Nutritional Needs Based on actual body weight (75kg) Energy: 4194-6410 kcal/day (30-35 kcal/kg for wound healing) Protein: 90-113-g/day (1.2-1.5 g/kg for wound healing, renal function) Fluid: 4378-3655 mL/day (1 mL/kcal) Nutrition Diagnosis: Increased nutrient (protein) needs r/t wound healing AEB Sx wound L foot s/p amp, Stg2 P/U sacralcoccyx Intervention 1. Add Renal diet to [facility] diet order 2. Add 1pk Prabhjot BID 3. Attempted contact Dr Gallegos regarding diet & ONS, waiting callback. Monitor/Evaluate Goal: PO intake at least 75% of estimated needs Monitor: PO intake, Labs, GI function F/U in 2-3days as high risk 08/10-08/11
--- NOTE | 2019-08-08 12:30 | NUR ---
Recommendation(s): 1. Add Renal diet to [facility] diet order 2. Add 1pk Prabhjot BID 3. Attempted contact Dr Gallegos regarding diet & ONS, waiting callback.
[2019-08-08] MEDS ORDERED: ACETAMINOPHEN-H1 TA1 PO (12:36)
[2019-08-08] MEDS ORDERED: CIPRO500 MG PO (12:37)
[2019-08-08 13:14] VITALS: BP 111/51
[2019-08-08 13:43] VITALS: BP 111/51
--- NOTE | 2019-08-08 16:30 | NUR ---
WOUND CARE AND DRSG CHANGED TO L FOOT GIVEN. CLEANED WOUND W/ NS, BETADINE GAUZE APPLIED. WRIPPED SOFT ROLL AND JOLENE BANDAGE. PHOTO TAKEN AND FILES. WOUND TO SACRAL, PHOTO TAKEN AND Z GUARD APPLED.
[2019-08-08 17:05] VITALS: BP 116/63
--- NOTE | 2019-08-08 18:00 | NUR ---
VOID X4. URINE COLOR FROM DARK AMEILE LIGHTENING TO YELLOW. D/C TO HOME PER ORDER. PER COUNTY ADMINISTRATOR - PATIENT'S INSURANCE CO WOULD SENT REFERRAL LETTER TO PATIENT FOR VASCULAR SURGERY. D/C INSTRUCTION GIVEN. IV D/C'D. OVER NEEDLE CATH INTACT. CONDITION STABLE.
== END 2019-08-08 18:02 | disposition home health service (06) | DRG 689 ==
LOC: ED 10:18 → MU 14:15
PROVIDERS: Internal Medicine Cardiovascular Disease; Internal Medicine Nephrology; Specialist; ADMIT Internal Medicine Pulmonary Disease
DX: N39.0 Urinary tract infection, site not specified (principal); N17.0 Acute kidney failure with tubular necrosis; R31.0 Gross hematuria; B96.1 Klebsiella pneumoniae [K. pneumoniae] as the cause of diseases classified elsewhere; E11.42 Type 2 diabetes mellitus with diabetic polyneuropathy; E11.65 Type 2 diabetes mellitus with hyperglycemia; I12.9 Hypertensive chronic kidney disease with stage 1 through stage 4 chronic kidney disease, or unspecified chronic kidney disease; E11.22 Type 2 diabetes mellitus with diabetic chronic kidney disease; I25.10 Atherosclerotic heart disease of native coronary artery without angina pectoris; N18.2 Chronic kidney disease, stage 2 (mild); M10.9 Gout, unspecified; I25.2 Old myocardial infarction; Z68.24 Body mass index [BMI] 24.0-24.9, adult; Z89.412 Acquired absence of left great toe; Z89.422 Acquired absence of other left toe(s); Z95.1 Presence of aortocoronary bypass graft; Z87.891 Personal history of nicotine dependence; Z86.74 Personal history of sudden cardiac arrest; Z79.01 Long term (current) use of anticoagulants; Z79.84 Long term (current) use of oral hypoglycemic drugs; Z16.12 Extended spectrum beta lactamase (ESBL) resistance
CPT/HCPCS: 82962; 83880; G0378; J0696; J1815; J3475; J7030; J7060; Q0092

== ENCOUNTER 2019-09-13 21:19 | Emergency (ER) | payer OTHER ==
[~2019-09-13] VITALS: Ht 177.8 cm; Wt 79.4 kg
[~2019-09-13 21:19] MED LIST changes: +ACETAMINOPHEN-H1 TA1 PO; +CIPRO500 MG PO
[2019-09-13 21:25] VITALS: Ht 177.8 cm; Wt 79.4 kg
[2019-09-13 22:34] VITALS: BP 112/60
== END 2019-09-13 22:34 | disposition home or self-care (01) ==
LOC: ED 21:19
DX: E11.621 Type 2 diabetes mellitus with foot ulcer (principal); Z76.0 Encounter for issue of repeat prescription

== ENCOUNTER 2019-09-17 11:32 | Inpatient (IN) | payer OTHER ==
[~2019-09-17] VITALS: Ht 177.8 cm; Wt 83.9 kg
[2019-09-17 13:46] LABS: BASOPHIL % 0.5 % (0-2); PLATELET COUNT 178 x10^3mcL (130-400)
[2019-09-17 13:50] LABS: RED CELL DISTRIBUTION WIDTH 17.4 % (11.5-14.5)
[2019-09-17 14:08] LABS: ALKALINE PHOSPHATASE 115 U/L (46-116); ALT/SGPT 17 U/L (16-63); AST/SGOT 24 U/L (15-37); BILIRUBIN TOTAL 0.6 mg/dL (0.20-1.00); C REACTIVE PROTEIN 3.7 mg/dL (<=0.9); CALCIUM 9.4 mg/dL (8.5-10.1); CARBON DIOXIDE 29.5 mmol/L (21-32); CHLORIDE SERUM 101 mmol/L (98-107); CREATININE SERUM 2.4 mg/dL (0.7-1.3); GLUCOSE SERUM 169 mg/dL (74-106); POTASSIUM SERUM 4.7 mmol/L (3.5-5.1); SODIUM SERUM 139 mmol/L (136-145)
[2019-09-17 14:12] LABS: ALBUMIN 3.1 g/dL (3.4-5.0); TOTAL PROTEIN, SERUM 9.1 g/dL (6.4-8.2)
[2019-09-17 14:29] LABS: ERYTHROCYTE SED RATE 97 mm/hr (0-20)
[2019-09-17] MEDS ORDERED: LASIX40 MG PO (15:13)
[2019-09-17] MEDS ORDERED: AMIODARONE200 MG PO (15:14)
[2019-09-17] MEDS ORDERED: Z5 PO (15:16)
[2019-09-17 16:46] VITALS: BP 106/60
[2019-09-17 19:30] VITALS: BP 94/55
[2019-09-18 05:10] VITALS: BP 92/51
[2019-09-18 06:58] LABS: ALKALINE PHOSPHATASE 109 U/L (46-116); ALT/SGPT 18 U/L (16-63); AST/SGOT 28 U/L (15-37); BILIRUBIN TOTAL 0.6 mg/dL (0.20-1.00); CALCIUM 8.9 mg/dL (8.5-10.1); CARBON DIOXIDE 28.9 mmol/L (21-32); CHLORIDE SERUM 100 mmol/L (98-107); CREATININE SERUM 2.6 mg/dL (0.7-1.3); GLUCOSE SERUM 133 mg/dL (74-106); POTASSIUM SERUM 4.6 mmol/L (3.5-5.1); SODIUM SERUM 139 mmol/L (136-145)
[2019-09-18 07:01] LABS: ALBUMIN 2.9 g/dL (3.4-5.0); TOTAL PROTEIN, SERUM 8.7 g/dL (6.4-8.2)
[2019-09-18 08:05] LABS: BASOPHIL % 0.4 % (0-2); PLATELET COUNT 183 x10^3mcL (130-400)
[2019-09-18 09:30] VITALS: BP 89/49
[2019-09-18 09:43] LABS: RED CELL DISTRIBUTION WIDTH 17.3 % (11.5-14.5)
[2019-09-18 16:48] VITALS: BP 106/60
[2019-09-18 20:40] VITALS: BP 96/59
[2019-09-19 05:41] VITALS: BP 100/61
[2019-09-19 07:08] LABS: ALKALINE PHOSPHATASE 94 U/L (46-116); ALT/SGPT 18 U/L (16-63); AST/SGOT 27 U/L (15-37); BILIRUBIN TOTAL 0.51 mg/dL (0.20-1.00); CARBON DIOXIDE 27.1 mmol/L (21-32); CHLORIDE SERUM 102 mmol/L (98-107); GLUCOSE SERUM 160 mg/dL (74-106); POTASSIUM SERUM 4.6 mmol/L (3.5-5.1); SODIUM SERUM 137 mmol/L (136-145); TOTAL PROTEIN, SERUM 8.2 g/dL (6.4-8.2)
[2019-09-19 07:16] LABS: ALBUMIN 2.7 g/dL (3.4-5.0)
[2019-09-19 08:45] VITALS: BP 113/69
[2019-09-19 16:55] VITALS: BP 108/58
[2019-09-19 21:37] VITALS: BP 109/62
[2019-09-20 05:40] VITALS: BP 103/54
[2019-09-20 07:04] LABS: BASOPHIL % 0.5 % (0-2); PLATELET COUNT 132 x10^3mcL (130-400)
[2019-09-20 07:21] LABS: ALKALINE PHOSPHATASE 81 U/L (46-116); ALT/SGPT 17 U/L (16-63); AST/SGOT 32 U/L (15-37); BILIRUBIN DIRECT 0.24 mg/dL (0.0-0.2); BILIRUBIN TOTAL 0.5 mg/dL (0.20-1.00); CALCIUM 8.4 mg/dL (8.5-10.1); CARBON DIOXIDE 25.7 mmol/L (21-32); CHLORIDE SERUM 101 mmol/L (98-107); CREATININE SERUM 1.7 mg/dL (0.7-1.3); GLUCOSE SERUM 90 mg/dL (74-106); POTASSIUM SERUM 4.5 mmol/L (3.5-5.1); SODIUM SERUM 135 mmol/L (136-145); TOTAL PROTEIN, SERUM 7.5 g/dL (6.4-8.2)
[2019-09-20 07:24] LABS: RED CELL DISTRIBUTION WIDTH 16.8 % (11.5-14.5)
[2019-09-20 07:27] LABS: ALBUMIN 2.3 g/dL (3.4-5.0)
[2019-09-20 08:38] VITALS: BP 116/62
[2019-09-20 17:19] VITALS: BP 101/58
[2019-09-20 21:15] VITALS: BP 102/66
[2019-09-21 04:58] VITALS: BP 97/54
[2019-09-21 06:53] LABS: BASOPHIL % 0.3 % (0-2); PLATELET COUNT 134 x10^3mcL (130-400)
[2019-09-21 07:24] LABS: RED CELL DISTRIBUTION WIDTH 17.3 % (11.5-14.5)
[2019-09-21 07:32] LABS: ALKALINE PHOSPHATASE 107 U/L (46-116); ALT/SGPT 27 U/L (16-63); AST/SGOT 48 U/L (15-37); BILIRUBIN TOTAL 0.38 mg/dL (0.20-1.00); CALCIUM 8.4 mg/dL (8.5-10.1); CARBON DIOXIDE 26.6 mmol/L (21-32); CHLORIDE SERUM 103 mmol/L (98-107); CREATININE SERUM 1.5 mg/dL (0.7-1.3); GLUCOSE SERUM 88 mg/dL (74-106); POTASSIUM SERUM 4.7 mmol/L (3.5-5.1); SODIUM SERUM 137 mmol/L (136-145); TOTAL PROTEIN, SERUM 7.2 g/dL (6.4-8.2)
[2019-09-21 07:37] LABS: ALBUMIN 2.3 g/dL (3.4-5.0)
[2019-09-21 08:58] VITALS: BP 112/67
[2019-09-21 16:09] VITALS: BP 105/57
[2019-09-21 20:31] VITALS: BP 102/59
[2019-09-22 04:45] VITALS: BP 116/67
[2019-09-22 06:37] LABS: BASOPHIL % 0.2 % (0-2); PLATELET COUNT 139 x10^3mcL (130-400)
[2019-09-22 06:42] LABS: RED CELL DISTRIBUTION WIDTH 16.9 % (11.5-14.5)
[2019-09-22 06:55] LABS: ALKALINE PHOSPHATASE 123 U/L (46-116); ALT/SGPT 30 U/L (16-63); AST/SGOT 48 U/L (15-37); BILIRUBIN TOTAL 0.47 mg/dL (0.20-1.00); CALCIUM 8.7 mg/dL (8.5-10.1); CARBON DIOXIDE 24.8 mmol/L (21-32); CHLORIDE SERUM 100 mmol/L (98-107); CREATININE SERUM 1.3 mg/dL (0.7-1.3); GLUCOSE SERUM 95 mg/dL (74-106); POTASSIUM SERUM 4.6 mmol/L (3.5-5.1); SODIUM SERUM 135 mmol/L (136-145); TOTAL PROTEIN, SERUM 8.2 g/dL (6.4-8.2)
[2019-09-22 06:58] LABS: ALBUMIN 2.6 g/dL (3.4-5.0)
[2019-09-22 08:52] VITALS: BP 107/65
[2019-09-22] MEDS ORDERED: MER500I IV (10:47)
[2019-09-22 17:20] VITALS: BP 117/60
[2019-09-22 19:30] VITALS: BP 113/59
[2019-09-22 20:42] VITALS: BP 107/59
[2019-09-23 05:46] VITALS: BP 110/57
[2019-09-23 07:02] LABS: BASOPHIL % 0.1 % (0-2)
[2019-09-23 07:20] LABS: ALKALINE PHOSPHATASE 101 U/L (46-116); ALT/SGPT 23 U/L (16-63); AST/SGOT 38 U/L (15-37); BILIRUBIN TOTAL 0.4 mg/dL (0.20-1.00); CALCIUM 8.2 mg/dL (8.5-10.1); CARBON DIOXIDE 22.4 mmol/L (21-32); CHLORIDE SERUM 100 mmol/L (98-107); CREATININE SERUM 1.3 mg/dL (0.7-1.3); GLUCOSE SERUM 156 mg/dL (74-106); MAGNESIUM 1.3 mg/dL (1.8-2.4); POTASSIUM SERUM 4.2 mmol/L (3.5-5.1); SODIUM SERUM 134 mmol/L (136-145); TOTAL PROTEIN, SERUM 7.3 g/dL (6.4-8.2)
[2019-09-23 07:22] LABS: ALBUMIN 2.2 g/dL (3.4-5.0)
[2019-09-23 07:41] LABS: PLATELET COUNT 127 x10^3mcL (130-400); RED CELL DISTRIBUTION WIDTH 17.3 % (11.5-14.5)
[2019-09-23 08:43] VITALS: BP 106/56
[2019-09-23 17:26] VITALS: BP 110/64
[2019-09-23 20:58] VITALS: BP 115/65
[2019-09-24 05:26] VITALS: BP 102/58
[2019-09-24 06:27] LABS: ALKALINE PHOSPHATASE 100 U/L (46-116); ALT/SGPT 20 U/L (16-63); AST/SGOT 31 U/L (15-37); BILIRUBIN TOTAL 0.5 mg/dL (0.20-1.00); CARBON DIOXIDE 23.8 mmol/L (21-32); CHLORIDE SERUM 103 mmol/L (98-107); CREATININE SERUM 1.3 mg/dL (0.7-1.3); GLUCOSE SERUM 88 mg/dL (74-106); MAGNESIUM 1.8 mg/dL (1.8-2.4); PLATELET COUNT 132 x10^3mcL (130-400); POTASSIUM SERUM 4.4 mmol/L (3.5-5.1); SODIUM SERUM 135 mmol/L (136-145); TOTAL PROTEIN, SERUM 7.1 g/dL (6.4-8.2)
[2019-09-24 06:40] LABS: BASOPHIL % 0 % (0-2); RED CELL DISTRIBUTION WIDTH 17.1 % (11.5-14.5)
[2019-09-24 06:46] LABS: ALBUMIN 2.1 g/dL (3.4-5.0)
[2019-09-24 08:53] VITALS: BP 108/59
[2019-09-24 12:28] VITALS: BP 111/65
[2019-09-24 17:00] VITALS: BP 105/75
[2019-09-24 20:00] VITALS: BP 99/60
[2019-09-25] VITALS (7 sets, daily range): BP systolic 105–120; BP diastolic 54–64
[2019-09-25 06:33] LABS: PLATELET COUNT 159 x10^3mcL (130-400)
[2019-09-25 06:36] LABS: ALKALINE PHOSPHATASE 90 U/L (46-116); ALT/SGPT 16 U/L (16-63); AST/SGOT 34 U/L (15-37); CALCIUM 7.5 mg/dL (8.5-10.1); CARBON DIOXIDE 19.9 mmol/L (21-32); CHLORIDE SERUM 104 mmol/L (98-107); CREATININE SERUM 1.4 mg/dL (0.7-1.3); GLUCOSE SERUM 184 mg/dL (74-106); MAGNESIUM 1.5 mg/dL (1.8-2.4); POTASSIUM SERUM 4.6 mmol/L (3.5-5.1); SODIUM SERUM 135 mmol/L (136-145); TOTAL PROTEIN, SERUM 7.1 g/dL (6.4-8.2)
[2019-09-25 06:57] LABS: ALBUMIN 2.2 g/dL (3.4-5.0)
[2019-09-25 07:46] LABS: SEGMENTED NEUTROPHILS 80 % (37-75)
[2019-09-25 07:47] LABS: BAND NEUTROPHIL 10 % (0-10); MONOCYTE 5 % (0-7)
[2019-09-25 09:05] LABS: UA SPECIFIC GRAVITY 1.025 (1.005-1.035); microscopic required? YES; urine erythrocyte 3+ (NEGATIVE)
[2019-09-26 08:09] VITALS: BP 153/77
[2019-09-26 09:10] LABS: BASOPHIL % 0.5 % (0-2); PLATELET COUNT 221 x10^3mcL (130-400)
[2019-09-26 09:15] LABS: CALCIUM 7.8 mg/dL (8.5-10.1); CARBON DIOXIDE 19.3 mmol/L (21-32); CHLORIDE SERUM 102 mmol/L (98-107); CREATININE SERUM 1.4 mg/dL (0.7-1.3); GLUCOSE SERUM 149 mg/dL (74-106); POTASSIUM SERUM 5.1 mmol/L (3.5-5.1); SODIUM SERUM 132 mmol/L (136-145)
[2019-09-26 10:09] LABS: RED CELL DISTRIBUTION WIDTH 17.3 % (11.5-14.5)
[2019-09-26 12:30] VITALS: BP 126/64
[2019-09-26 16:18] VITALS: BP 114/69
[2019-09-26 19:29] VITALS: BP 117/57
[2019-09-27 05:45] VITALS: BP 111/68
[2019-09-27 06:08] LABS: PLATELET COUNT 260 x10^3mcL (130-400)
[2019-09-27 06:22] LABS: AST/SGOT 41 U/L (15-37); CARBON DIOXIDE 20.1 mmol/L (21-32); CHLORIDE SERUM 101 mmol/L (98-107); POTASSIUM SERUM 4.7 mmol/L (3.5-5.1); SODIUM SERUM 132 mmol/L (136-145); TOTAL PROTEIN, SERUM 6.8 g/dL (6.4-8.2)
[2019-09-27 06:39] LABS: RED CELL DISTRIBUTION WIDTH 17.1 % (11.5-14.5)
[2019-09-27 07:15] VITALS: BP 107/69
[2019-09-27 08:03] LABS: ALKALINE PHOSPHATASE 87 U/L (46-116); ALT/SGPT 19 U/L (16-63); CALCIUM 8.1 mg/dL (8.5-10.1); CREATININE SERUM 1.3 mg/dL (0.7-1.3); GLUCOSE SERUM 99 mg/dL (74-106); MAGNESIUM 1.9 mg/dL (1.8-2.4)
[2019-09-27 08:04] LABS: ALBUMIN 1.9 g/dL (3.4-5.0)
[2019-09-27 12:00] VITALS: BP 106/55
[2019-09-27 13:04] LABS: MONOCYTE 6 % (0-7); SEGMENTED NEUTROPHILS 85 % (37-75)
[2019-09-27 13:54] LABS: rbc morphology (normal/abnorm) NORMAL (NORMAL)
[2019-09-27 16:00] VITALS: BP 101/54
[2019-09-27 19:16] VITALS: BP 106/67
[2019-09-27 23:10] VITALS: BP 108/68
[2019-09-28 03:08] VITALS: BP 107/66
[2019-09-28 06:20] LABS: BASOPHIL % 0.2 % (0-2); CALCIUM 7.7 mg/dL (8.5-10.1); CARBON DIOXIDE 21.1 mmol/L (21-32); CHLORIDE SERUM 102 mmol/L (98-107); CREATININE SERUM 1.5 mg/dL (0.7-1.3); GLUCOSE SERUM 158 mg/dL (74-106); PLATELET COUNT 357 x10^3mcL (130-400); POTASSIUM SERUM 4.7 mmol/L (3.5-5.1); SODIUM SERUM 132 mmol/L (136-145)
[2019-09-28 07:23] LABS: RED CELL DISTRIBUTION WIDTH 16.9 % (11.5-14.5)
[2019-09-28 07:59] VITALS: Ht 177.8 cm; Wt 83.9 kg
[2019-09-28 08:00] VITALS: BP 119/70
[2019-09-28 13:16] VITALS: BP 98/53
[2019-09-28 14:30] VITALS: BP 107/63
[2019-09-28 17:29] VITALS: BP 112/56
[2019-09-28 19:59] VITALS: BP 123/71
[2019-09-29 04:26] VITALS: BP 107/65
[2019-09-29 09:20] VITALS: BP 112/69
[2019-09-29 11:47] VITALS: BP 96/58
[2019-09-29 14:37] VITALS: BP 103/64
[2019-09-29 16:48] VITALS: BP 107/64
[2019-09-29 20:20] VITALS: BP 114/70
[2019-09-30 05:05] VITALS: BP 102/61
[2019-09-30 06:12] LABS: BASOPHIL % 0.1 % (0-2)
[2019-09-30 06:43] LABS: ALKALINE PHOSPHATASE 157 U/L (46-116); ALT/SGPT 43 U/L (16-63); AST/SGOT 55 U/L (15-37); BILIRUBIN TOTAL 0.65 mg/dL (0.20-1.00); CALCIUM 7.8 mg/dL (8.5-10.1); CARBON DIOXIDE 19.6 mmol/L (21-32); CHLORIDE SERUM 103 mmol/L (98-107); CREATININE SERUM 1.3 mg/dL (0.7-1.3); GLUCOSE SERUM 144 mg/dL (74-106); MAGNESIUM 1.9 mg/dL (1.8-2.4); POTASSIUM SERUM 4.8 mmol/L (3.5-5.1); SODIUM SERUM 132 mmol/L (136-145); TOTAL PROTEIN, SERUM 6.8 g/dL (6.4-8.2)
[2019-09-30 06:50] LABS: PLATELET COUNT 413 x10^3mcL (130-400); RED CELL DISTRIBUTION WIDTH 17.2 % (11.5-14.5)
[2019-09-30 07:13] LABS: ALBUMIN 1.9 g/dL (3.4-5.0)
[2019-09-30 08:02] VITALS: BP 112/64
[2019-09-30 11:45] VITALS: BP 102/55
[2019-09-30 12:46] VITALS: BP 128/76
[2019-09-30 16:21] VITALS: BP 114/70
== END 2019-09-30 17:59 | DRG 853 ==
LOC: ED 11:32 → MU 15:33 → DU 15:33 → MU 16:19 → IC 09-24 17:54 → DU 09-26 12:37 → IC 09-27 07:05 → DU 09-27 07:52 → IC 09-27 07:57 → DU 09-28 14:36
PROVIDERS: Emergency Medicine; Internal Medicine Nephrology; Internal Medicine Pulmonary Disease; Surgery; ADMIT Internal Medicine
PROC: 02HV33Z Insertion of Infusion Device into Superior Vena Cava, Percutaneous Approach (ICD-10-PCS; 2019-09-22)
PROC: B548ZZA Ultrasonography of Superior Vena Cava, Guidance (ICD-10-PCS; 2019-09-22)
PROC: 30233N1 Transfusion of Nonautologous Red Blood Cells into Peripheral Vein, Percutaneous Approach (ICD-10-PCS; 2019-09-24)
PROC: 0Y6J0Z3 Detachment at Left Lower Leg, Low, Open Approach (ICD-10-PCS; principal; 2019-09-24 09:00)
DX: A41.9 Sepsis, unspecified organism (principal); N17.0 Acute kidney failure with tubular necrosis; M86.8X7 Other osteomyelitis, ankle and foot; L03.116 Cellulitis of left lower limb; I13.0 Hypertensive heart and chronic kidney disease with heart failure and stage 1 through stage 4 chronic kidney disease, or unspecified chronic kidney disease; L97.528 Non-pressure chronic ulcer of other part of left foot with other specified severity; E87.1 Hypo-osmolality and hyponatremia; E11.22 Type 2 diabetes mellitus with diabetic chronic kidney disease; E11.51 Type 2 diabetes mellitus with diabetic peripheral angiopathy without gangrene; N18.3 Chronic kidney disease, stage 3 (moderate); E11.42 Type 2 diabetes mellitus with diabetic polyneuropathy; I50.9 Heart failure, unspecified; E11.69 Type 2 diabetes mellitus with other specified complication; F12.21 Cannabis dependence, in remission; E11.65 Type 2 diabetes mellitus with hyperglycemia; E11.621 Type 2 diabetes mellitus with foot ulcer; I48.0 Paroxysmal atrial fibrillation; F10.11 Alcohol abuse, in remission; I25.10 Atherosclerotic heart disease of native coronary artery without angina pectoris; M10.9 Gout, unspecified; I25.2 Old myocardial infarction; Z89.412 Acquired absence of left great toe; Z89.422 Acquired absence of other left toe(s); Z95.1 Presence of aortocoronary bypass graft; Z87.891 Personal history of nicotine dependence; Z79.899 Other long term (current) drug therapy; Z90.49 Acquired absence of other specified parts of digestive tract; Z68.26 Body mass index [BMI] 26.0-26.9, adult; Z23 Encounter for immunization
CPT/HCPCS: 82962; 90658; 97110-GP; 97112-GP; 97116-GP; 97164; 97530-GP; C1751; G0378; J0282; J0690; J1644; J1815; J2185; J2270; J2543; J3010; J3370; J3475; J3490; J7030; J7040; P9016; Q0092

== ENCOUNTER 2019-11-22 18:35 | Emergency (ER) | payer OTHER ==
[~2019-11-22] VITALS: Ht 180.3 cm; Wt 80.7 kg
[~2019-11-22 18:35] MED LIST changes: +LASIX40 MG PO; +MER500I IV
[2019-11-22 18:39] VITALS: Ht 180.3 cm; Wt 80.7 kg
[2019-11-22 20:15] VITALS: BP 103/68
== END 2019-11-22 20:15 | disposition home or self-care (01) ==
LOC: ED 18:35
DX: M25.512 Pain in left shoulder (principal); I10 Essential (primary) hypertension; E11.9 Type 2 diabetes mellitus without complications; M10.9 Gout, unspecified; Z86.74 Personal history of sudden cardiac arrest; Z95.1 Presence of aortocoronary bypass graft; Z89.612 Acquired absence of left leg above knee; W18.30XA Fall on same level, unspecified, initial encounter; Y93.89 Activity, other specified; Y92.89 Other specified places as the place of occurrence of the external cause; Y99.8 Other external cause status